=== PATIENT | male | born 1960 | race Two or more races ===

== ENCOUNTER 2024-08-15 11:05 | Emergency (ER) | payer MEDICARE, MEDICAID, SELFPAY ==
[2024-08-15 11:10] VITALS: PULSE 64; O2SAT 97; BMI 24.2
[2024-08-15 11:13] VITALS: BP 124/59; PULSE 69; RESP 19; TEMP 36.8; O2SAT 99
--- NOTE | 2024-08-15 11:36 | XR_ITS ---
Examination: CT lumbar spine, without contrast. 2-D sagittal reconstructions. 2-D coronal reconstructions. 3-D reconstructions. Date and time of exam:August 15, 2024 1413 hrs. Indications: Back pain beginning 3 days ago, no injury CTDI: vol (mGy):13.4 DLP: (mGycm):405 Technique: Multiple 1.25 mm axial sections of the lumbar spine without intravenous contrast have been obtained. 2-D sagittal and coronal reconstructions have been obtained. 3-D reconstructions have been obtained. Low dose protocols were performed. One or more of the following dose reduction techniques were used; automated exposure control, adjustment of the mA and/or KV according to patient size, use of iterative reconstruction technique. Findings: Moderate osteopenia Adequate alignment lumbar vertebral bodies on the lateral view No lumbar fractures or significant disc narrowing Lumbar pedicles, laminae, transverse and posterior spinous processes are intact L4-L5 moderate overall spinal stenosis, axial image 78, 5 mm central lumbar disc bulge, facet arthropathy and thickening of ligamentum flavum with mild left L4 ganglionic compression Impression: No lumbar fracture L4-L5 moderate overall spinal stenosis, including 5 mm central lumbar disc bulge and mild left L4 ganglionic compression Consider elective MRI lumbar spine without contrast follow-up
--- NOTE | 2024-08-15 11:37 | PD.EDRME ---
Rapid Medical Screening Exam RME Arrival date/time: 08/15/24 11:05 Chief Complaint: Extremity Problem,Nontraumatic Time Seen by Provider: 08/15/24 11:06 Vital signs: Vital Signs Temperature 98.3 F 08/15/24 11:13 Pulse Rate 69 08/15/24 11:13 Respiratory Rate 19 08/15/24 11:13 Blood Pressure 124/59 L 08/15/24 11:13 Pulse Oximetry (%) 99 08/15/24 11:13 Oxygen Delivery Method Room Air 08/15/24 11:13 RME Narrative: Left lower back pain radiating to LLE x 3 days. No preceding injury or fall reported. Taking gabapentin without relief.
--- NOTE | 2024-08-15 11:50 | PD.EDEXREM ---
ED Extremity Problem RME/HPI General Chief complaint: Extremity Problem,Nontraumatic Stated complaint: LEFT LEG PAIN x 3 DAYS Time Seen by Provider: 08/15/24 11:06 Arrival date/time: 08/15/24 11:05 RME / HPI RME / HPI Narrative: 64-year-old male patient with significant history of diabetes mellitus, came in for evaluation regarding left-sided lumbar pain, has been ongoing for the last 3 days, pain radiates to the left lower leg, described as dull ache, severity 9 out of 10, worse with extension of the leg. Patient denies any urinary incontinence. Denies any bladder incontinence. Denies any saddle anesthesia. Denies any fall. Denies any fever. Denies any other complaints. No medication was taken prior to arrival. Related Data Home Medications ?Medication ?Instructions ?Recorded ?Confirmed metformin 1,000 mg tablet 1,000 mg PO BID 08/09/22 08/09/22 Previous Rx's ?Medication ?Instructions ?Recorded cyclobenzaprine 10 mg tablet 10 mg PO TID PRN muscle spasm #30 08/15/24 tabs ibuprofen 800 mg tablet 800 mg PO TID PRN pain #30 tabs 08/15/24 Allergies Allergy/AdvReac Type Severity Reaction Status Date / Time No Known Allergies Allergy Verified 08/15/24 11:15 Review of Systems Review of Systems Narrative Review of Systems: Review of system reviewed and within normal limits except mentioned in HPI ED Exam Narrative Physical exam: VITAL SIGNS: Reviewed. GENERAL APPEARANCE: Alert and interactive, follows commands, no acute distress, HEAD AND FACE: Non-traumatic. ENT: PERRL, pink conjunctivitis, eyelid no trauma, Mucous membrane moist. NECK: Supple, nontender, no nuchal rigidity. CHEST: No tenderness, no crepitus, no paradoxical movement, no retractions. LUNGS: Clear, well ventilated, symmetric, no rales, no wheezing, no ronchi, no stridor, good breath sounds bilaterally. HEART: Regular rate, regular rhythm, no murmur, no gallops. ABDOMEN: Soft, positive bowel sounds, nondistended, no guarding, nontender, no rebound, no masses, RECTAL: Deferred. GENITAL: Deferred. NEUROLOGICAL: Gross motor function intact sensory function intact, Appropriate for age. MUSCULOSKELETAL: low back nontender, full range of motion. EXTREMITIES: Left posterior leg tenderness, positive straight leg raising test at 45 degrees., full range of motion. SKIN: Color pink, dry, no rash, no lacerations, no abrasions, no contusions. LYMPHATICS: Deferred. Course Quality Measures none Orders Category Date Time Status CT lumbar spine wo con Stat Exams 08/15/24 11:36 Completed Acetaminophen Tab [Tylenol ES Tab] Med 08/15/24 11:36 Discontinued 1,000 mg PO X1 ONE CYCLObenzaPRINE [Flexeril] Med 08/15/24 11:36 Discontinued 10 mg PO X1 ONE Dexamethasone Inj [Decadron Inj] Med 08/15/24 12:10 Discontinued 10 mg IM X1 ONE Ketorolac Inj [Toradol Inj] Med 08/15/24 11:36 Discontinued 30 mg IM X1 ONE Lidocaine 5% Patch Med 08/15/24 11:36 Discontinued 1 patch TOP X1 ONE Vital Signs Vital signs: Vital Signs Temperature 98.3 F 08/15/24 11:13 Pulse Rate 69 08/15/24 11:13 Respiratory Rate 19 08/15/24 11:13 Blood Pressure 124/59 L 08/15/24 11:13 Pulse Oximetry (%) 99 08/15/24 11:13 Oxygen Delivery Method Room Air 08/15/24 11:13 Extremity Problem MDM Narrative MDM Narrative:: 64-year-old male patient with significant history of diabetes mellitus, came in for evaluation regarding left-sided lumbar pain, has been ongoing for the last 3 days, pain radiates to the left lower leg, described as dull ache, severity 9 out of 10, worse with extension of the leg. Patient denies any urinary incontinence. Denies any bladder incontinence. Denies any saddle anesthesia. Denies any fall. Denies any fever. Denies any other complaints. No medication was taken prior to arrival. Patient received Tylenol, Flexeril, Decadron, Toradol, lidocaine patch, with significant improvement of symptoms. Patient's CT scan of the lumbar spine showed No lumbar fracture L4-L5 moderate overall spinal stenosis, including 5 mm central lumbar disc bulge and mild left L4 ganglionic compression Consider elective MRI lumbar spine without contrast follow-up Patient was advised to follow-up with PCP and for referral to spine surgeon for further management of his sciatica. Patient and family agrees with the plan. Patient is ambulatory prior to discharge Patient data External records reviewed:: None Clinical information provided by:: none Social determinants that could affect healthcare access:: none Patient has the following chronic illnesses:: None How is presenting disease/condition affected by chronic disease/condition?: no chronic disease Evaluation data The following diagnostics were reviewed and interpreted by me:: radiology exam(s) Lab and/or radiology exams considered but not ordered:: None Interpretation Summary: CT scan of the lumbar spine showed No lumbar fracture L4-L5 moderate overall spinal stenosis, including 5 mm central lumbar disc bulge and mild left L4 ganglionic compression Consider elective MRI lumbar spine without contrast follow-up Medications / Prescriptions Medications or Prescriptions considered but not ordered:: None Medication administrations:: Medication Administration History Discontinued Medications Acetaminophen (Acetaminophen 500 Mg Tablet) 1,000 mg PO X1 ONE Stop: 08/15/24 11:37 Last Admin: 08/15/24 11:59 Dose: 1,000 mg Documented By: TC Cyclobenzaprine HCl (Cyclobenzaprine 5 Mg Tablet) 10 mg PO X1 ONE Stop: 08/15/24 11:37 Last Admin: 08/15/24 12:00 Dose: 10 mg Documented By: TC Dexamethasone Sodium Phosphate (Dexamethasone Sod Phos Inj 10 Mg/Ml Vial) 10 mg IM X1 ONE Stop: 08/15/24 12:11 Last Admin: 08/15/24 12:28 Dose: 10 mg Documented By: TC Ketorolac Tromethamine (Ketorolac Inj 60 Mg/2 Ml Vial) 30 mg IM X1 ONE Stop: 08/15/24 11:37 Last Admin: 08/15/24 12:00 Dose: 30 mg Documented By: GILMAR Lidocaine (Lidocaine 5% 1 Patch) 1 patch TOP X1 ONE Stop: 08/15/24 11:37 Last Admin: 08/15/24 12:00 Dose: 1 patch Documented By: TC Toradol Decadron Flexeril Tylenol and lidocaine patch Consultations Consultation(s) initiated? (list below): No Diagnosis Extremity Problem Differential Diagnosis: other (Low back pain, sciatica, herniated disks) Most likely diagnosis given after review of the tests above:: Low back pain, sciatica Admission Indicated Admission indicated?: not indicated Explain why admission is indicated or not indicated:: None Admission Request Was there a request for admission?: No Disposition Plan Disposition Plan: Discharge Discharge Attestation Discharge Attestation: The patient and all family members were given an opportunity to ask questions and understood the discharge instructions. Discharge instructions specifically effects, indications for sooner follow up or return to the emergency department, and the expected course of current diagnosis. Patient condition: Stable Discharge Plan Plan Patient Disposition: HOME (Self Care) Disposition Comment: stable Prescriptions/Referrals Prescriptions/Med Rec: New ibuprofen 800 mg tablet 800 mg PO TID PRN (Reason: pain) Qty: 30 0RF cyclobenzaprine 10 mg tablet 10 mg PO TID PRN (Reason: muscle spasm) Qty: 30 0RF No Action metformin 1,000 mg tablet 1,000 mg PO BID Patient Comments: TOME FRANCK TABLETA TODOS LOS D WITH A MEAL FOR 30 DAYS Referrals: Calvin Jean MD [Primary Care Provider] - In 1 week Problem List Clinical Impression: Sciatica Patient/Caregiver Discharge Instructions Discharge Activity: activity as tolerated Education Materials: ED Sciatica Additional Instructions: Thank you for the opportunity for serving you today. You are stable for discharged . You are advised to: Follow-up with your PCP in 1 to 2 days for referral to spine surgeon Return to ED for worsening of symptoms Increase oral fluids Take medication as prescribed Print Language: Portuguese Stand Alone Forms: Nia Award Info., Patient Portal Info Letter LIZ/HUSEYIN Supervising Physician LIZ/HUSEYIN Supervising Physician: md michelle
[2024-08-15] MEDS: ACETAMINOPHEN 500 MG TABLET 1000 MG PO (11:59)
[2024-08-15] MEDS: LIDOCAINE 5% 1 PATCH TOP (12:00)
[2024-08-15] MEDS: KETOROLAC INJ 60 MG/2 ML VIAL 30 MG IM (12:00)
[2024-08-15] MEDS: CYCLObenzaPRINE 5 MG TABLET 10 MG PO (12:00)
[2024-08-15] MEDS: DEXAMETHASONE SOD PHOS INJ 10 MG/ML VIAL IM (12:28)
== END 2024-08-15 16:43 | disposition home or self-care (01) ==
PROVIDERS: Emergency Provider Emergency Medicine; PCP Family Medicine
DX: M51.16 Intervertebral disc disorders with radiculopathy, lumbar region (principal); M48.061 Spinal stenosis, lumbar region without neurogenic claudication; G95.29 Other cord compression
CPT/HCPCS: 72131; 96372; 99284; J1100; J1885; A9270

== ENCOUNTER 2024-08-22 10:07 | Emergency (ER) | payer MEDICARE, MEDICAID, SELFPAY ==
[2024-08-22 10:08] VITALS: BMI 21.6
[2024-08-22 11:00] VITALS: BP 121/63; PULSE 90; RESP 13; TEMP 37.1; O2SAT 97
[2024-08-22] MEDS: DIAZEPAM 5 MG TABLET 10 MG PO (11:20)
[2024-08-22] MEDS: DEXAMETHASONE SOD PHOS INJ 10 MG/ML VIAL PO (11:21)
[2024-08-22] MEDS: KETOROLAC INJ 30 MG/ML VIAL IM (11:21)
--- NOTE | 2024-08-22 11:50 | PD.EDBACK ---
ED Back Injury Pain RME/HPI General Chief Complaint: Back Pain/Injury Stated Complaint: LOWER BACK PAIN RADIANTING TO L LEG Time Seen by Provider: 08/22/24 10:15 Arrival date/time: 08/22/24 10:07 64-year-old male presents emergency department complaints of lower back pain patient recently seen for the same Limitations: no limitations Related Data Home Medications ?Medication ?Instructions ?Recorded ?Confirmed metformin 1,000 mg tablet 1,000 mg PO BID 08/09/22 08/09/22 Previous Rx's ?Medication ?Instructions ?Recorded cyclobenzaprine 10 mg tablet 10 mg PO TID PRN muscle spasm #30 08/15/24 tabs ibuprofen 800 mg tablet 800 mg PO TID PRN pain #30 tabs 08/15/24 hydrocodone 5 mg-acetaminophen 325 1 tab PO BID PRN pain #10 tabs 08/22/24 mg tablet Allergies Allergy/AdvReac Type Severity Reaction Status Date / Time No Known Allergies Allergy Verified 08/15/24 11:15 Review of Systems Review of Systems Systems Reviewed: All systems reviewed, normal except as documented Constitutional Constitutional: Reports system reviewed and no additional complaints, except as documented, Denies fever(s) and Denies headache(s) Eyes Eyes: Reports system reviewed and no additional complaints, except as documented and Denies blurry vision ENT Ears, Nose, Mouth, and Throat: Reports system reviewed and no additional complaints, except as documented, Denies headache(s), Denies nasal congestion and Denies nasal discharge Cardiovascular Cardiovascular: Reports system reviewed and no additional complaints, except as documented, Denies chest pain and Denies dyspnea Respiratory Respiratory: Reports system reviewed and no additional complaints, except as documented, Denies chest congestion, Denies cough and Denies dyspnea Gastrointestinal Gastrointestinal: Reports system reviewed and no additional complaints, except as documented and Denies abdominal pain Musculoskeletal Musculoskeletal: Reports system reviewed and no additional complaints, except as documented, Reports back pain, Denies deformity and Reports stiffness Integumentary/Breasts Skin/Breast: Reports system reviewed and no additional complaints, except as documented and Denies rash Neurologic Neurologic: Reports system reviewed and no additional complaints, except as documented, Reports as per HPI and Denies headache(s) Past Medical History Past Medical History NEUROLOGIC: Positive Neurological Disorders and Migraine; Negative Seizures or Head Trauma CARDIAC: Negative Cardiac Disorders or Congestive Heart Failure RESPIRATORY: Negative Chronic Obstructive Pulmonary Disease (COPD) or Tuberculosis GASTROINTESTINAL: Positive Gastrointestinal Disorders and Gall Bladder Disease (FOR THIS PROC); Negative Hepatitis GENITOURINARY: Negative Genitourinary Disorders or Renal Disease MUSCULOSKELETAL: Positive Musculoskeletal Disorders and Arthritis ENT: Negative Head Trauma ENDOCRINE: Positive Endocrine Disorders, Diabetes Mellitus Type 1 (TAKES PO MED) and Diabetes Mellitus Type 2 (TAKES PO MED) HEMATOLOGIC: Negative Blood Disorders OTHER HISTORY: Negative Hospitalization, Autoimmune Disease, Shingles, Falls, Blood Transfusions, Blood Transfusion Reaction, Anesthesia Reactions, Chicken Pox, Measles, Mumps or Cancer Family History FAMILY HISTORY: Positive Family Cancer (MOTHER (UTERUS)); Negative Family Psychiatric Problems, Family Respiratory Disorders, Family Cardiac Disorders (UNKNOWN), Family Gastrointestinal Problems, Family Surgery or Family Anesthesia Reaction Social History SMOKING STATUS: Never smoker ED Exam General Limitations: Present no limitations General appearance: Present alert and in no apparent distress Head Head exam: Present atraumatic Eye Eye exam: Present normal appearance, PERRL and EOMI ENT ENT exam: Present normal exam, normal oropharynx and mucous membranes moist Neck Neck exam: Present normal inspection, full ROM and trachea midline Chest Chest inspection: Present normal inspection and symmetric chest wall rise Respiratory Respiratory exam: Present normal lung sounds bilaterally Cardiovascular Cardiovascular exam: Present regular rate, normal rhythm and normal heart sounds Abdominal Exam Abdominal exam: Present soft and normal bowel sounds Extremities Exam Extremities exam: Present normal inspection and full ROM Back Exam Back exam: Present normal inspection, full ROM, tenderness, muscle spasm, paraspinal tenderness, sciatic notch tenderness (R) and straight leg raise (R); Absent CVA tenderness (R), CVA tenderness (L) or vertebral tenderness Neurological Exam Neurological exam: Present alert, oriented X3, CN II-XII intact, normal gait and reflexes normal; Absent motor sensory deficit Psychiatric Psychiatric exam: Present normal affect and normal mood Skin Skin exam: Present warm, dry, intact and normal color Course Quality Measures none Orders Category Date Time Status Dexamethasone Inj [Decadron Inj] Med 08/22/24 11:04 Discontinued 10 mg PO X1 ONE Diazepam [Valium] Med 08/22/24 11:04 Discontinued 10 mg PO X1 ONE Ketorolac Inj [Toradol Inj] Med 08/22/24 11:04 Discontinued 30 mg IM X1 ONE Vital Signs Vital signs: Vital Signs Temperature 98.8 F 08/22/24 11:00 Pulse Rate 90 08/22/24 11:00 Respiratory Rate 13 08/22/24 11:00 Blood Pressure 121/63 08/22/24 11:00 Pulse Oximetry (%) 97 08/22/24 11:00 Oxygen Delivery Method Room Air 08/22/24 11:00 O2 saturation 97% room air within normal limits Back Pain / Injury MDM Narrative MDM Narrative:: 64-year-old male presents emergency department complaints of lower back pain patient recently seen for the same On exam patient well-appearing patient does not appear ill or toxic patient reports no hematuria or dysuria patient reports no nausea or vomiting patient reports no saddle anesthesia or loss of bowel or bladder Patient reports that the pain is in the right side of his back and radiates down the right leg Patient had CT scan done 08/15 patient has bulging disks Patient given pain medication and muscle relaxants. At time reevaluation patient reports symptoms have improved Patient instructed to have outpatient MRI Patient discharged home in no distress to follow-up with primary care doctor in the next 24 to 48 hours and for any worsening symptoms to return to the ER immediately Patient data External records reviewed:: [facility] previous records Clinical information provided by:: patient Social determinants that could affect healthcare access:: none Patient has the following chronic illnesses:: None How is presenting disease/condition affected by chronic disease/condition?: no chronic disease Evaluation data The following diagnostics were reviewed and interpreted by me:: other (specify) (N/A) Lab and/or radiology exams considered but not ordered:: Consider not ordered Interpretation Summary: N/A Medications / Prescriptions Medications or Prescriptions considered but not ordered:: Given Medication administrations:: Medication Administration History Discontinued Medications Dexamethasone Sodium Phosphate (Dexamethasone Sod Phos Inj 10 Mg/Ml Vial) 10 mg PO X1 ONE Stop: 08/22/24 11:05 Last Admin: 08/22/24 11:21 Dose: 10 mg Documented By: OA Diazepam (Diazepam 5 Mg Tablet) 10 mg PO X1 ONE Stop: 08/22/24 11:05 Last Admin: 08/22/24 11:20 Dose: 10 mg Documented By: OA Ketorolac Tromethamine (Ketorolac Inj 30 Mg/Ml Vial) 30 mg IM X1 ONE Stop: 08/22/24 11:05 Last Admin: 08/22/24 11:21 Dose: 30 mg Documented By: OA Given Consultations Consultation(s) initiated? (list below): No Diagnosis Differential diagnosis back pain/injury: lumbar radiculopathy, strain of lumbar region and discitis Most likely diagnosis given after review of the tests above:: Back pain Admission Indicated Admission indicated?: not indicated Admission Request Was there a request for admission?: No Disposition Plan Disposition Plan: Discharge Discharge Attestation Discharge Attestation: The patient and all family members were given an opportunity to ask questions and understood the discharge instructions. Discharge instructions specifically effects, indications for sooner follow up or return to the emergency department, and the expected course of current diagnosis. Patient condition: Stable Discharge Plan Plan Patient Disposition: HOME (Self Care) Disposition Comment: Stable Prescriptions/Referrals Prescriptions/Med Rec: New hydrocodone-acetaminophen 5-325 mg tablet 1 tab PO BID MDD 10 PRN (Reason: pain) Qty: 10 0RF No Action metformin 1,000 mg tablet 1,000 mg PO BID Patient Comments: SANDRANena FRANCK JOHNSONA TODOS LOS D WITH A MEAL FOR 30 DAYS ibuprofen 800 mg tablet 800 mg PO TID PRN (Reason: pain) Qty: 30 0RF cyclobenzaprine 10 mg tablet 10 mg PO TID PRN (Reason: muscle spasm) Qty: 30 0RF Problem List Clinical Impression: Bulging lumbar disc Patient/Caregiver Discharge Instructions Education Materials: Relieving Back Pain Additional Instructions: Please follow up with your primary care doctor in the next 24-48hrs for any worsening symptoms return here immediately Please bring copy of your CT report your primary care doctor request outpatient MRI Print Language: Armenian Stand Alone Forms: Nia Award Info., Patient Portal Info Letter PA/HUSEYIN Supervising Physician LIZ/HUSEYIN Supervising Physician: Dr. Grewal
== END 2024-08-22 12:36 | disposition home or self-care (01) ==
LOC: SERX 11:52
PROVIDERS: Emergency Provider Emergency Medicine; PCP Family Medicine
DX: M51.360 Other intervertebral disc degeneration, lumbar region with discogenic back pain only (principal)
CPT/HCPCS: 96372; 99283; J1100; J1885; A9270

== ENCOUNTER → 2024-10-09 | Outpatient (CLI) | payer MEDICARE, MEDICAID, SELFPAY ==
--- NOTE | 2024-10-09 11:00 | XR_ITS ---
Examination: Arterial duplex lower extremity study. Date and time of exam: October 09, 2024 1121 hours INDICATIONS: Bilateral lower leg pain beginning 3 months ago Findings: Duplex sonographic imaging of the lower extremity arteries using B-mode/Moore scale imaging and Doppler spectral analysis and color flow. Ankle brachial indices have been recorded. Right common femoral artery demonstrates triphasic flow. Right superficial femoral artery demonstrates triphasic flow. Right popliteal artery demonstrates triphasic flow. Right posterior tibial artery demonstrated biphasic flow. Right ankle/brachial index is 1.4. Left common femoral artery demonstrates triphasic flow. Left superficial femoral artery demonstrates triphasic flow. Left popliteal artery demonstrates triphasic flow. Left posterior tibial artery demonstrated biphasic flow. Left ankle/brachial index is 1.3. Impression: No significant obstructive arterial disease
== END | disposition home or self-care (01) ==
LOC: CDIM 11:08
PROVIDERS: PCP Physician Assistant; Referring Provider Physician Assistant; Visit Provider Physician Assistant
DX: I73.9 Peripheral vascular disease, unspecified (principal)
CPT/HCPCS: 93925

== ENCOUNTER 2025-03-09 21:06 | Emergency (ER) | payer MEDICARE, MEDICAID, SELFPAY ==
[2025-03-09 21:10] VITALS: BMI 27.4
[2025-03-09 21:22] VITALS: BP 102/65; PULSE 108; RESP 18; TEMP 38; O2SAT 98
--- NOTE | 2025-03-09 21:44 | PD.EDURI ---
Upper Respiratory Inf. RME/HPI General Chief Complaint: Fever Stated Complaint: FEVER CHILLS WEAKNESS Time Seen by Provider: 03/09/25 21:20 Arrival date/time: 03/09/25 21:06 64M with history of DM presents to ED with 2 days of body aches, fevers/chills, and LLANES. Patient denies cough, dysuria, ab pain, N/V, diarrhea, sick contacts, and recent travel. Limitations: no limitations Related Data Home Medications ?Medication ?Instructions ?Recorded ?Confirmed metformin 1,000 mg tablet 1,000 mg PO BID 08/09/22 08/09/22 Previous Rx's ?Medication ?Instructions ?Recorded cyclobenzaprine 10 mg tablet 10 mg PO TID PRN muscle spasm #30 08/15/24 tabs ibuprofen 800 mg tablet 800 mg PO TID PRN pain #30 tabs 08/15/24 hydrocodone 5 mg-acetaminophen 325 1 tab PO BID PRN pain #10 tabs 08/22/24 mg tablet Allergies Allergy/AdvReac Type Severity Reaction Status Date / Time No Known Allergies Allergy Verified 03/09/25 21:14 Review of Systems Review of Systems Systems Reviewed: All systems reviewed, normal except as documented Constitutional Constitutional: Reports system reviewed and no additional complaints, except as documented, Reports as per HPI, Reports body ache(s), Reports chills, Reports fever(s) and Reports headache(s) ENT Ears, Nose, Mouth, and Throat: Denies disequilibrium and Reports headache(s) Cardiovascular Cardiovascular: Reports system reviewed and no additional complaints, except as documented, Denies chest pain and Denies dyspnea Respiratory Respiratory: Reports system reviewed and no additional complaints, except as documented, Denies cough and Denies dyspnea Gastrointestinal Gastrointestinal: Reports system reviewed and no additional complaints, except as documented, Denies abdominal pain, Denies nausea and Denies vomiting Neurologic Neurologic: Reports system reviewed and no additional complaints, except as documented, Denies confusion, Denies disequilibrium and Reports headache(s) Psychiatric Psychiatric: Denies confusion Past Medical History Past Medical History NEUROLOGIC: Positive Neurological Disorders and Migraine; Negative Seizures or Head Trauma CARDIAC: Negative Cardiac Disorders or Congestive Heart Failure RESPIRATORY: Negative Chronic Obstructive Pulmonary Disease (COPD) or Tuberculosis GASTROINTESTINAL: Positive Gastrointestinal Disorders and Gall Bladder Disease (FOR THIS PROC); Negative Hepatitis GENITOURINARY: Negative Genitourinary Disorders or Renal Disease MUSCULOSKELETAL: Positive Musculoskeletal Disorders and Arthritis ENT: Negative Head Trauma ENDOCRINE: Positive Endocrine Disorders, Diabetes Mellitus Type 1 (TAKES PO MED) and Diabetes Mellitus Type 2 (TAKES PO MED) HEMATOLOGIC: Negative Blood Disorders OTHER HISTORY: Negative Hospitalization, Autoimmune Disease, Shingles, Falls, Blood Transfusions, Blood Transfusion Reaction, Anesthesia Reactions, Chicken Pox, Measles, Mumps or Cancer Family History FAMILY HISTORY: Positive Family Cancer (MOTHER (UTERUS)); Negative Family Psychiatric Problems, Family Respiratory Disorders, Family Cardiac Disorders (UNKNOWN), Family Gastrointestinal Problems, Family Surgery or Family Anesthesia Reaction Social History SMOKING STATUS: Current some day smoker ED Exam General Limitations: Present no limitations General appearance: Present alert and in no apparent distress Expanded Head Exam Head exam physical: Present other (dried blood on R jaw area) Eye Eye exam: Present normal appearance, PERRL and EOMI ENT ENT exam: Present normal exam, normal oropharynx and mucous membranes moist Neck Neck exam: Present normal inspection, full ROM and trachea midline Chest Chest inspection: Present normal inspection and symmetric chest wall rise Respiratory Respiratory exam: Present normal lung sounds bilaterally Cardiovascular Cardiovascular exam: Present regular rate, normal rhythm and normal heart sounds Abdominal Exam Abdominal exam: Present soft and normal bowel sounds Extremities Exam Extremities exam: Present normal inspection and full ROM Back Exam Back exam: Present normal inspection and full ROM Neurological Exam Neurological exam: Present alert, oriented X3 and CN II-XII intact Psychiatric Psychiatric exam: Present normal affect and normal mood Skin Skin exam: Present warm, dry, intact and normal color Course Quality Measures none Orders Category Date Time Status Bedside COVID-19 Antigen Test NOW Care 03/09/25 21:28 Active Bedside Influenza A&B Antigen Test NOW Care 03/09/25 21:28 Completed XR chest 2V Stat Exams 03/09/25 21:43 Ordered CBC Stat Lab 03/09/25 21:43 Ordered CMP [Comprehensive Metabolic Panel] Stat Lab 03/09/25 21:43 Ordered Lactate (Lactic Acid) Stat Lab 03/09/25 21:43 Ordered Procalcitonin Stat Lab 03/09/25 21:43 Ordered Urinalysis, C/S if Indicated Stat Lab 03/09/25 21:43 Ordered Acetaminophen Tab [Tylenol ES Tab] Med 03/09/25 21:28 Discontinued 500 mg PO X1 ONE Vital Signs Vital signs: Vital Signs Temperature 100.4 F 03/09/25 21:22 Pulse Rate 108 H 03/09/25 21:22 Respiratory Rate 18 03/09/25 21:22 Blood Pressure 102/65 03/09/25 21:22 Pulse Oximetry (%) 98 03/09/25 21:22 Oxygen Delivery Method Room Air 03/09/25 21:22 O2 at 98% on RA and WNLs Upper Respiratory Infection MDM Narrative MDM Narrative:: 64M with history of DM presents to ED with 2 days of body aches, fevers/chills, and LLANES. Patient denies cough, dysuria, ab pain, N/V, diarrhea, sick contacts, and recent travel. Physical exam reveals clear oropharynx and lungs. Normal WOB. Patient has some dried blood on R jaw area from shaving, patient states. Patient is mildly febrile but does not appear toxic. Speech normal. Gait normal. Swabs neg. Patient eloped. Patient data External records reviewed:: [facility] [place] previous records Clinical information provided by:: patient Social determinants that could affect healthcare access:: none Patient has the following chronic illnesses:: DM How is presenting disease/condition affected by chronic disease/condition?: exacerbated by Evaluation data The following diagnostics were reviewed and interpreted by me:: lab results Lab and/or radiology exams considered but not ordered:: ordered Interpretation Summary: above Medications / Prescriptions Medications or Prescriptions considered but not ordered:: ordered Medication administrations:: Medication Administration History Discontinued Medications Acetaminophen (Acetaminophen 500 Mg Tablet) 500 mg PO X1 ONE Stop: 03/09/25 21:29 above Consultations Consultation(s) initiated? (list below): No Diagnosis Upper Respiratory Differential Diagnosis: upper respiratory infection, croup, otitis media, sinusitis, viral infection, bronchitis, influenza, pharyngitis and other (CAP) Most likely diagnosis given after review of the tests above:: URI Admission Indicated Admission indicated?: not indicated Admission Request Was there a request for admission?: No Disposition Plan Disposition Plan: other (specify) (eloped) Discharge Plan Plan Patient Disposition: Elopement Prescriptions/Referrals Prescriptions/Med Rec: No Action metformin 1,000 mg tablet 1,000 mg PO BID Patient Comments: LALITO BRYANT TOS[facility] LOS D WITH A MEAL FOR 30 DAYS ibuprofen 800 mg tablet 800 mg PO TID PRN (Reason: pain) Qty: 30 0RF cyclobenzaprine 10 mg tablet 10 mg PO TID PRN (Reason: muscle spasm) Qty: 30 0RF hydrocodone-acetaminophen 5-325 mg tablet 1 tab PO BID MDD 10 PRN (Reason: pain) Qty: 10 0RF Problem List Clinical Impression: URI (upper respiratory infection) Patient/Caregiver Discharge Instructions Print Language: Nepalese PA/WIRE DROPPER Supervising Physician PA/WIRE DROPPER Supervising Physician: Dr. Reinoso
--- NOTE | 2025-03-09 22:27 | PC.NURSE ---
called for pt from lobby/outside, no answerx1@[id number]
--- NOTE | 2025-03-09 22:27 | PC.NURSE ---
called for pt from lobby/outside, no answerx2@ [id number]
--- NOTE | 2025-03-09 22:33 | PC.NURSE ---
called for pt from lobby/outside, no answerx3@ [phone]
== END 2025-03-09 22:34 | disposition left against medical advice (07) ==
LOC: SERX 23:09
PROVIDERS: Emergency Provider Emergency Medicine
DX: J06.9 Acute upper respiratory infection, unspecified (principal); F17.210 Nicotine dependence, cigarettes, uncomplicated; Z53.29 Procedure and treatment not carried out because of patient's decision for other reasons
CPT/HCPCS: 80053; 81001; 83605; 84145; 85025; 87400; 87811; 99282; 99283

== ENCOUNTER 2025-06-05 23:55 | Inpatient (IN) | payer MEDICARE, MEDICAID, SELFPAY ==
[2025-06-06] VITALS (32 sets, daily range): BP systolic 80–134; BP diastolic 48–82; PULSE 45–78; RESP 12–19; TEMP 35.8–36.8; O2SAT 98–100; BMI 16.3; BMI 17.4
--- NOTE | 2025-06-06 00:04 | EKG_ITS ---
[facility] Test Date: 2025-06-06 Pat Name: BRITT DOBBINS Department: Room: - Gender: Male Medicare Nurse: : 1960 Requested By: Vic Mckeon Order Number: [id number] Reading MD: Vic Mckeon Measurements Intervals [place] Rate: 65 P: 66 NM: 138 QRS: 73 QRSD: 84 T: 78 QT: 411 QTc: 428 Interpretive Statements SINUS RHYTHM Compared to ECG 08/09/2022 09:06:57 Sinus bradycardia no longer present Sinus arrhythmia no longer present /store/S0/[id number].pdf
[2025-06-06] MEDS: SODIUM CHLORIDE 0.9% 1000 ML 1,000 ML 999 ML IV ×2 (00:15→03:46)
--- NOTE | 2025-06-06 00:17 | PD.EDADULT ---
ED General RME/HPI General Chief complaint: Nausea/Vomiting/Diarrhea Stated complaint: ABDOMINAL PAIN Time Seen by Provider: 06/06/25 00:01 Arrival date/time: 06/05/25 23:55 RME / HPI RME / HPI narrative: Shamar is a 65 y/o male who comes in for evaluation for multiple episodes of hematemesis. Patient reports that he was drinking coffee this morning and he had it with grapes and he felt nauseous and threw up. He says that the color of the vomiting was dark. Denies this ever happening to him. He says he drinks 2-4 beers every day and is not sure for how long. Denies any dark bowel movements. He says that he only takes Tylenol and avoids NSAIDs such as ibuprofen and Advil. He does not have any abdominal pain at this time. His states that he is unsure when the last time he has not had a colonoscopy. His also states that he sometimes spikes his coffee with whiskey. She also says that he has been losing weight for several years now. She also states that he sometimes hide his alcohol from her. Related Data Home Medications ?Medication ?Instructions ?Recorded ?Confirmed metformin 1,000 mg tablet 1,000 mg PO BID 08/09/22 08/09/22 Previous Rx's ?Medication ?Instructions ?Recorded cyclobenzaprine 10 mg tablet 10 mg PO TID PRN muscle spasm #30 08/15/24 tabs ibuprofen 800 mg tablet 800 mg PO TID PRN pain #30 tabs 08/15/24 hydrocodone 5 mg-acetaminophen 325 1 tab PO BID PRN pain #10 tabs 08/22/24 mg tablet Allergies Allergy/AdvReac Type Severity Reaction Status Date / Time No Known Allergies Allergy Verified 03/09/25 21:14 Review of Systems Review of Systems Narrative Review of Systems: 12 point ROS reviewed and is otherwise negative unless stated directly in the HPI ED Exam Narrative Physical exam: General: AAOx3, NAD, anorexic male, appears slightly cachectic, Romansh-speaking male HEENT: Dry mucous membranes, conjunctiva clear, EOMI, PERRLA, minimal musculature around clavicles Cardiovascular: S1, S2, radial pulses +2 bilat, RRR Pulmonary: CTAB bilat no cough, no wheezing GI: No tenderness to light or deep palpitation, no guarding, rigidity, rebound tenderness or distension, AUNDREA performed and FOBT + Extremities: No presence of trace or pitting edema in lower extremities bilaterally, dorsalis pedis pulses +2 bilaterally Neuro: AAOx3, no focal motor or sensory deficits in the UE or LE bilat Psych: Cooperative Course Quality Measures none Orders Category Date Time Status Admit to Inpatient Status Routine Admission 06/06/25 03:20 Active Patient Condition Routine Admission 06/06/25 03:20 Ordered Activity as Tolerated Routine Care 06/06/25 03:22 Ordered COVID-19 Screening Questionnaire NOW Care 06/06/25 03:39 Active Decision to Admit X1 Care 06/06/25 03:39 Completed EKG (ED ONLY) *Do not use* NOW Care 06/06/25 00:04 Completed Insert IV NOW Care 06/06/25 00:04 Active NPO NOW Care 06/06/25 01:21 Active Notify provider NEEDED Care 06/06/25 03:20 Active Post Transfusion H&H PRN Care 06/06/25 01:15 Active Sequential Compression Device QSHIFT Care 06/06/25 03:20 Active Transfuse,blood/blood products NOW Care 06/06/25 01:15 Active Consult to Gastroenterology Stat Cons 06/06/25 01:21 Ordered Diet NPO (NOW) Diet 06/06/25 01:21 Active EKG (ED Only) Stat Exams 06/06/25 00:04 Draft US liver Stat Exams 06/06/25 01:22 Taken Alcohol, Blood Medical Stat Lab 06/06/25 00:05 Completed Alcohol, Urine Routine Lab 06/06/25 03:15 Ordered Basic Metabolic Panel AM DRAW Lab 06/06/25 04:40 Received Basic Metabolic Panel AM DRAW Lab 06/07/25 05:00 Ordered Basic Metabolic Panel AM DRAW Lab 06/08/25 05:00 Ordered CBC AM DRAW Lab 06/06/25 04:40 Completed CBC AM DRAW Lab 06/07/25 05:00 Ordered CBC AM DRAW Lab 06/08/25 05:00 Ordered CBC Stat Lab 06/06/25 00:05 Completed CMP [Comprehensive Metabolic Panel] Stat Lab 06/06/25 00:05 Completed Drug Screen,Urine Stat Lab 06/06/25 02:15 Ordered HIV RAPID [HIV (1&2) Antibody Rapid] Stat Lab 06/06/25 00:05 Completed Hepatitis C Antibody Stat Lab 06/06/25 04:40 Received INR [Prothrombin Time with INR] Stat Lab 06/06/25 00:05 Completed Lipase Stat Lab 06/06/25 00:05 Completed Lipid Panel Routine Lab 06/06/25 04:40 Received Mag [Magnesium] Stat Lab 06/06/25 00:05 Completed Magnesium AM DRAW Lab 06/06/25 04:40 Received Magnesium AM DRAW Lab 06/07/25 05:00 Ordered Magnesium AM DRAW Lab 06/08/25 05:00 Ordered Occult Blood, Stool (LAB) Stat Lab 06/06/25 00:19 Completed PTT [Partial Thromboplastin Time] Stat Lab 06/06/25 00:05 Completed Path Review Blood Smear Stat Lab 06/06/25 00:05 Completed Phosphorous AM DRAW Lab 06/07/25 05:00 Ordered Phosphorous AM DRAW Lab 06/08/25 05:00 Ordered Phosphorous AM DRAW Lab 06/09/25 05:00 Ordered Phosphorous Stat Lab 06/06/25 00:05 Completed Troponin I Stat Lab 06/06/25 00:05 Completed Type and Screen Stat Lab 06/06/25 00:05 Completed Urinalysis, C/S if Indicated Stat Lab 06/06/25 00:57 Completed Urine Culture Stat Lab 06/06/25 00:57 Received prbc [Red Blood Cells] Stat Lab 06/06/25 00:05 Completed Acetaminophen Tab [Tylenol Tab] Med 06/06/25 03:20 Active 650 mg PO Q6H PRN Acetaminophen Tab [Tylenol Tab] Med 06/06/25 03:20 Active 650 mg PO Q6H PRN Octreotide Acet Inj [SandoSTATIN Inj] Med 06/06/25 01:20 Discontinued 50 mcg IV X1 ONE Ondansetron Inj [Zofran Inj] Med 06/06/25 03:20 Active 4 mg IVP Q6H PRN Pantoprazole Inj [Protonix Inj] Med 06/06/25 09:00 Active 40 mg IVP BID Pantoprazole Inj [Protonix Inj] Med 06/06/25 01:17 Discontinued 80 mg IVP X1 ONE Sodium Chloride 0.9% 1000 ml [Ns] 1,000 ml Med 06/06/25 00:04 Discontinued IV 999 mls/hr Sodium Chloride 0.9% 1000 ml [Ns] 1,000 ml Med 06/06/25 03:39 Discontinued IV 999 mls/hr Sodium Chloride 0.9% [Ns] 100 ml Med 06/06/25 01:20 Active Octreotide Acet Inj [SandoSTATIN Inj] 1,000 mcg IV 50 mcg/hr Code Status Routine Oth 06/06/25 03:20 Ordered Vital Signs Vital signs: Vital Signs Temperature 97.9 F 06/06/25 00:01 Pulse Rate 70 06/06/25 00:01 Respiratory Rate 16 06/06/25 00:01 Blood Pressure 80/48 L 06/06/25 00:01 Pulse Oximetry (%) 100 06/06/25 00:01 Oxygen Delivery Method Room Air 06/06/25 00:01 Discharge Plan Problem List Clinical Impression: GI bleed MDM Narrative MDM hospital course (for use when minimal MDM required): 0021: Ordered labs including CBC, CMP, ordered 1 PRBC in addition to type and screen. AUNDREA performed and FOBT was positive. Ordered additional fluid bolus. Also ordered HIV and hep C due to patient being cachectic. 0120: Spoke with GI, Dr. Orellana, recommends initiating octreotide drip with octreotide loading dose in addition to Protonix. Will put patient n.p.o. and set for endoscopy for later today. Will transfuse blood now as well. 0200: Spoke with primary hospitalist team who will review case for admission. 0245: Hospitalist team agrees for admission. Medication Administration(s) Medication Administration History Acetaminophen (Acetaminophen 325 Mg Tablet) 650 mg PO Q6H PRN PRN Reason: Fever >101.5 Stop: 07/06/25 03:19 Acetaminophen (Acetaminophen 325 Mg Tablet) 650 mg PO Q6H PRN PRN Reason: PAIN SCALE 1-3 (mild Stop: 07/06/25 03:19 Octreotide Acetate 1,000 mcg/ (Sodium Chloride) 102 mls @ 5.1 mls/hr IV .Q20H MANUEL; Protocol Stop: 06/11/25 01:20 Last Admin: 06/06/25 02:27 Dose: 50 mcg/hr, 5.1 mls/hr Documented By: ANAI Ceftriaxone Sodium/Dextrose (Rocephin/D5w 1gm Iv Premix) 1 gm in 50 mls @ 100 mls/hr IV QDAY MANUEL Stop: 06/13/25 04:04 Ondansetron HCl (Ondansetron Inj 2 Mg/Ml Inj 2 Ml) 4 mg IVP Q6H PRN; Protocol PRN Reason: NAUSEA OR VOMITING Stop: 07/06/25 03:19 Pantoprazole Sodium (Pantoprazole Inj 40 Mg Vial) 40 mg IVP BID MANUEL Stop: 07/06/25 08:59 Sennosides (Senna/Docusate Sod 1 Tab Tablet) 1 tab PO QDAY PRN; Protocol PRN Reason: CONSTIPATION Stop: 07/06/25 03:54 Discontinued Medications Sodium Chloride (Ns) 1,000 mls @ 999 mls/hr IV .Q1H1M ONE Stop: 06/06/25 01:04 Last Infusion: 06/06/25 01:29 Dose: Infused Documented By: Admin: 06/06/25 00:15 Dose: 999 mls/hr Documented By: BARRON Sodium Chloride (Ns) 1,000 mls @ 999 mls/hr IV .Q1H1M ONE Stop: 06/06/25 04:39 Last Infusion: 06/06/25 04:51 Dose: Infused Documented By: Admin: 06/06/25 03:46 Dose: 999 mls/hr Documented By: ANAI Octreotide Acetate (Octreotide Acet Inj 50 Mcg/Ml Vial) 50 mcg IV X1 ONE Stop: 06/06/25 01:21 Last Admin: 06/06/25 02:28 Dose: 50 mcg Documented By: ANAI Pantoprazole Sodium (Pantoprazole Inj 40 Mg Vial) 80 mg IVP X1 ONE Stop: 06/06/25 01:18 Last Admin: 06/06/25 02:25 Dose: 80 mg Documented By: ANAI Consultations/Discussions re: Management Consult #1: Date/time: 06/06/25 1:29 am Physician, specialty, service, details: Spoke with GI, Dr. Orellana, recommends initiating octreotide drip with octreotide loading dose in addition to Protonix. Will put patient n.p.o. and set for endoscopy for later today. Consult #2: Date/time: 06/06/25 2:32 am Physician, specialty, service, details: 0200: Spoke with primary hospitalist team, Dr. Davis, who will review case for admission. 0245: Hospitalist team agrees for admission.
[2025-06-06 00:29] LABS: Basophils # (Auto) 0.0 Thou/mm3 (0.0-0.2); Basophils % (Auto) 1 % (0-2.5); Eosinophils # (Auto) 0.1 Thou/mm3 (0.0-0.5); Eosinophils % (Auto) 1 % (0-10); Immature Granulocytes Auto 0.02 Thou/mm3 (0.00-0.00); Lymphocytes # (Auto) 1.9 Thou/mm3 (1.0-4.8); Lymphocytes % (Auto) 24 % (10-50); Mean Corpuscular HGB Conc 34.3 g/dl (31.0-37.0); Mean Corpuscular Hemoglobin 32.9 pg (25.0-35.0); Mean Corpuscular Volume 96 fL (80-100); Monocytes # (Auto) 0.7 Thou/mm3 (0.0-0.8); Monocytes % (Auto) 8 % (0-12); Neutrophils # (Auto) 5.1 Thou/mm3 (1.8-7.7); Neutrophils % (Auto) 65 % (37-80); Nucleated Red Blood Cell # 0.00 Thou/mm3 (0.00-0.00); Nucleated Red Blood Cell % 0 /100 WBC (0); Platelet Count 327 Thou/mm3 (140-440); RDW Standard Deviation 50.7 fL (35.1-43.9); Red Blood Count 2.10 Miln/mm3 (4.50-5.90); White Blood Count 7.8 Thou/mm3 (3.8-10.6)
[2025-06-06 00:31] LABS: Hematocrit 20.1 % (41.0-53.0); Hemoglobin 6.9 g/dL (13.5-16.0)
[2025-06-06 00:38] LABS: Path Review Blood Smear Sent to Pathologist
[2025-06-06 00:43] LABS: OBS Card Lot # 0124; OBS Developer Expiration Date 06/01/2026; OBS Developer Lot # 75027G; OBS Performed By Orpiw2; OBS QC OK? Yes; Occult Blood, Stool Positive (Negative)
[2025-06-06 00:47] LABS: Alanine Aminotransferase 11 U/L (10-49); Albumin, Serum 3.4 gm/dL (3.4-4.8); Albumin/Globulin Ratio 1.3 (1.2-2.2); Alkaline Phosphatase 67 U/L (46-116); Anion Gap 9 (7-16); Aspartate Amino Transferase 35 U/L (0-34); BUN/Creatinine Ratio 73 Ratio (12-20); Bilirubin,Total 0.5 mg/dL (0.3-1.2); Blood Urea Nitrogen 44 mg/dL (9-23); Calcium 9.2 mg/dL (8.3-10.6); Calcium (Corrected) 9.7 mg/dL (8.5-10.1); Carbon Dioxide 27.1 mMol/L (20.0-31.0); Chloride 104 mMol/L (98-107); Creatinine (Component) 0.6 mg/dL (0.6-1.3); Estimated Creatinine Clearance 76.2 mL/min (>60); Globulin 2.6 gm/dL (2.3-3.5); Glucose 113 mg/dL (74-106); Lipase 30 U/L (12-53); Magnesium 2.1 mg/dL (1.6-2.6); Osmolality,Calculated 291 (275-295); Phosphorous 3.2 mg/dL (2.4-5.1); Potassium 3.7 mMol/L (3.4-5.1); Sodium 140 mMol/L (136-145); Total Protein 6.0 gm/dL (5.7-8.2); Troponin I < 0.020 ng/mL (0.0-0.045); eGFR > 60 See Note
[2025-06-06 01:04] LABS: Collection Type, Urine Catheter
[2025-06-06 01:09] LABS: Bacteria,Urine 4+; Bilirubin,Urine Negative (Negative); Blood,Urine Negative (Negative); Clarity,Urine Clear (Clear/Hazy); Color,Urine Lt-Yellow (Lt Yel-Yel); Glucose, Urine 3+ (Negative); Hyaline Casts,Urine < 1 /hpf (0-1); Ketones,Urine Negative (Negative); Leukocyte Esterase,Urine Positive (Negative); Nitrite,Urine Negative (Negative); PH,Urine 6.5 (5.0-7.0); Protein,Urine Negative (Neg - Trace); RBC,Urine < 1 /hpf (0-3); Specific Gravity,Urine 1.018 (1.001-1.035); Squamous Epithelial Cell,Urine < 1 /hpf (0-5); Urobilinogen,Urine Negative mg/dL (0.0-1.0); WBC,Urine 38 /hpf (0-5)
[2025-06-06 01:11] LABS: Culture Indicated,Urine Yes
[2025-06-06 01:15] LABS: HIV (1&2) Antibody Rapid Non-Reactive
--- NOTE | 2025-06-06 01:22 | XR_ITS ---
Examination: Abdomen sonogram, Limited Date and time of exam: June 06, 2025, 0132 hrs. Indications: Diagnosis cirrhosis Technique: Real-time collado scale transabdominal sonographic images of the upper abdomen obtained. Findings: Absent gallbladder Normal common bile duct 0.4 cm Pancreas obscured by bowel gas Liver 14.0 cm irregular contour fatty infiltration no focal liver lesions Normal hepatopedal portal venous flow Patent IVC Impression: Absent gallbladder Normal common bile duct Primary hepatocellular disease versus cirrhosis, no focal liver lesions
--- NOTE | 2025-06-06 02:02 | PC.NURSE ---
PT BIBA FOR VOMITING BLOOD. PT STATES THAT HE HAD ONE VOMITING EPISODE THAT WAS RED BUT HE THOUGHT IT WAS RELATED TO GRAPES THAT HE ATE EARLY. THIS RN ASKED IF HES NOTICED ANY RED STOOLS OR BLACK STOOLS. HE STATES THAT HES HAD ONE STOOL THAT WAS DARK. PT DENIES SOB OR CHEST PAIN. DOES REPORT SOME ABDOMINAL PAIN AND NAUSEA. HE STATES THAT HES BEEN FEELING WEAK FOR A LONG TIME.
--- NOTE | 2025-06-06 02:07 | PC.NURSE ---
blood transfusion initiated at bedside per provider order. Correct patient identification. Vital signs obtained prior to transfusion. Patient monitored closely during initiation of transfusion. No signs or symptoms of transfusion reaction noted. Patient denies chills, fever, rash, sob, back pain, or other discomfort. RN remained at bedside during first 15 minutes of transfusion. Vital signs within normal limits; patient resting comfortably.
[2025-06-06] MEDS: OCTREOTIDE ACET INJ 1,000 MCG in SODIUM CHLORIDE 0.9% 100 ML 5.1 MCG IV ×2 (02:27→21:04)
[2025-06-06] MEDS: OCTREOTIDE ACET INJ 50 mCg/ML VIAL IV (02:28)
--- NOTE | 2025-06-06 02:38 | PRELIM_ITS ---
Ultrasound liver with Doppler and wave Doppler spectral analysis. June 06, 2025 0132 hours Clinical history: Concern for cirrhosis Comparison: None available at the time of this report. Findings: The liver measures 14.0 cm and demonstrates normal echotexture. There is no intrahepatic biliary ductal dilatation. The main portal vein demonstrates hepatopetal flow. The visualized hepatic veins appear patent. The common hepatic duct is normal in caliber. The CBD measures 4.2 mm. The portal vein is patent with hepatopetal flow and normal wave Doppler spectral analysis. The hepatic veins are patent with normal wave Doppler spectral analysis. The IVC is patent with normal wave Doppler spectral analysis. Impression: Unremarkable sonography of the liver. No ultrasound evidence of cirrhosis. Report Electronically Signed By: Cricket Fowler 06/06/2025 2:37:23 AM [EST]
[2025-06-06 02:59] LABS: INR 1.0 (0.9-1.3); Partial Thromboplastin Time 27.0 Seconds (22.0-36.0); Prothrombin Time 10.7 Seconds (9.0-12.2)
[2025-06-06 03:29] LABS: Alcohol, Blood Medical < 3.0 mg/dL (0-10.0)
--- NOTE | 2025-06-06 03:30 | PD.RESHP ---
Documentation for date of: 06/06/25 HPI History of Present Illness History of present illness: Mr. Schwab is a 65 y/o male with PMH of EtOH use disorder, HLD, T2DM who presented to the ED on 06/05 with multiple episodes of hematemis over the past 24 hours. Patient minimally interactive during exam, history provided by patient's and daughter at bedside. Patient drinks 2-3 tall beers and smokes 1/2 PPD since childhood. Per ED note, he also occasionally adds whiskey to his coffee. Notes constipation for the past several days. He also takes Tylenol and ibuprofen daily. Patient denies abdominal pain, nausea, chest pain/pressure, urinary sx. Daughter notes that the patient has not had any recent illnesses or hospitalizations. He sees a PCP but does not see any specialists. ED course: Afebrile, HR 50s-70s, BP 100s / 50-60s. Labs significant for normocytic normochromic anemia hgb 6.9, HCT 20.1, BUN 44. Cr and eGFR WNL. Lipase WNL. AST 35. Troponin negative. UA 3+ glucose, +LE, WBC 38, 4+ bacteria. FOBT positive. HIV negative. EKG NSR HR 65, QTc 428. Liver US pending final read. Ucx pending. Given 1U pRBC, 2L NS, octreotide, pantropazole IV. Consulted GI. PMHx: EtOH use disorder, HLD, T2DM Allergies: NKDA Home meds: Metformin, unknown dose (pending med rec) SgHx: cholecystectomy (08/[address] Reynolds) SHx: Drinks 2-3 tall beers and smokes 1/2 PPD since childhood. Lives at home with . FHx: none reported Review of Systems Review of Systems Narrative Review of Systems: 14 point ROS negative other than HPI Exam Vital Signs Temp Pulse Resp BP Pulse Ox O2 Del Method 97.8 F 60 17 106/51 L 100 Room Air 06/06/25 02:31 06/06/25 02:31 06/06/25 02:31 06/06/25 02:31 06/06/25 02:31 06/06/25 02:31 Narrative Exam General: No acute distress, cachectic, minimally interactive Eye: PERRL, EOMI HENT: Normocephalic, atraumatic, normal hearing Neck: Supple, non-tender, no JVD, no lymphadenopathy Lungs: Clear to auscultation bilaterally, non-labored respirations, symmetric chest rise, no use of accessory muscles Heart: Normal S1 and S2, no S3 or S4 appreciated. Normal rate and regular rhythm, no murmurs, rubs gallops, or edema. Peripheral pulses intact bilaterally, capillary refill brisk distally Abdomen: Soft, non-tender, non-distended, normal bowel sounds. No guarding or rebound tenderness. Musculoskeletal: Normal range of motion and strength Skin: Skin is warm, dry, no rashes or lesions. Neurologic: Alert, awake and oriented to person, place, but not to date or situation. Unable to assess CN II-XII. Moving all extremities spontaneously Results: Labs 06/06/25 04:40 06/06/25 00:05 Labs: Short CBC 06/06/25 Range/Units 00:05 WBC 7.8 (3.8-10.6) Thou/mm3 Hgb 6.9 L* (13.5-16.0) g/dL Hct 20.1 L* (41.0-53.0) % Plt Count 327 (140-440) Thou/mm3 BMP 06/06/25 00:05 Sodium 140 Potassium 3.7 Chloride 104 Carbon Dioxide 27.1 BUN 44 H Creatinine 0.6 Glucose 113 H Calcium 9.2 Cardiac Enzymes 06/06/25 Range/Units 00:05 Troponin I < 0.020 (0.0-0.045) ng/mL Liver Function 06/06/25 Range/Units 00:05 Total Bilirubin 0.5 (0.3-1.2) mg/dL AST 35 H (0-34) U/L ALT 11 (10-49) U/L Alkaline Phosphatase 67 (46-116) U/L Albumin 3.4 (3.4-4.8) gm/dL Urine 06/06/25 Range/Units 00:57 Urine Color Lt-Yellow (Lt Yel-Yel) Urine Clarity Clear (Clear/Hazy) Urine pH 6.5 (5.0-7.0) Ur Specific [place] 1.018 (1.001-1.035) Urine Protein Negative (Neg - Trace) Urine Glucose (UA) 3+ A (Negative) Quality Measures Quality Measures none Advance care planning discussed with:: patient, significant other and child Medications Home Medications and Allergies Home Medications ?Medication ?Instructions ?Recorded ?Confirmed ?Type metformin 1,000 mg tablet 1,000 mg PO BID 08/09/22 08/09/22 History Allergies Allergy/AdvReac Type Severity Reaction Status Date / Time No Known Allergies Allergy Verified 03/09/25 21:14 Visit Medications Acetaminophen (Acetaminophen 325 Mg Tablet) 650 mg PO Q6H PRN PRN Reason: Fever >101.5 Stop: 07/06/25 03:19 Acetaminophen (Acetaminophen 325 Mg Tablet) 650 mg PO Q6H PRN PRN Reason: PAIN SCALE 1-3 (mild Stop: 07/06/25 03:19 Octreotide Acetate 1,000 mcg/ (Sodium Chloride) 102 mls @ 5.1 mls/hr IV .Q20H MANUEL; Protocol Stop: 06/11/25 01:20 Last Admin: 06/06/25 02:27 Dose: 50 mcg/hr, 5.1 mls/hr Ondansetron HCl (Ondansetron Inj 2 Mg/Ml Inj 2 Ml) 4 mg IVP Q6H PRN; Protocol PRN Reason: NAUSEA OR VOMITING Stop: 07/06/25 03:19 Pantoprazole Sodium (Pantoprazole Inj 40 Mg Vial) 40 mg IVP BID MANUEL Stop: 07/06/25 08:59 Discontinued Medications Sodium Chloride (Ns) 1,000 mls @ 999 mls/hr IV .Q1H1M ONE Stop: 06/06/25 01:04 Last Infusion: 06/06/25 01:29 Dose: Infused Octreotide Acetate (Octreotide Acet Inj 50 Mcg/Ml Vial) 50 mcg IV X1 ONE Stop: 06/06/25 01:21 Last Admin: 06/06/25 02:28 Dose: 50 mcg Pantoprazole Sodium (Pantoprazole Inj 40 Mg Vial) 80 mg IVP X1 ONE Stop: 06/06/25 01:18 Last Admin: 06/06/25 02:25 Dose: 80 mg Assessment & Plan Plan Mr. Schwab is a 65 y/o male with PMH of EtOH use disorder, HLD, T2DM who presented to the ED on 06/05 with multiple episodes of hematemis i/s/o EtOH and NSAID use. Admitted for upper GI bleed. #Acute encephalopathy i/s/o hypotension 2/2 upper GI bleed 2L IVF given in ED Plan: - Continue 2nd liter IVF, reassess volume status and mental status #Hematemesis #Suspected upper GI bleed #Hypotension 2/2 Hypovolemia Multiple episodes of hematemesis i/s/o daily EtOH and NSAID use Initial HR 50s-70s, BP 100s / 50-60s FOBT positive Started octreotide, pantoprazole IV, IVF in ED Plan: - Octreotide 50 mcg/hr IV - Pantroprazole 40 mg IV BID - Ceftriaxone 1g IV daily for SBP prophylaxis - Pending Liver US read #Normocytic normochromic anemia i/s/o upper GI bleed On admit: hgb 6.9, HC T20.1 s/p 1U pRBC transfusion in ED Plan: - Pending post-transfusion CBC #Complicated UTI Denies urinary sx Afebrile, UA 3+ glucose, +LE, WBC 38, 4+ bacteria Plan: - Ceftriaxone 1g IV daily - Pending urine cx #T2DM Home med: Metformin (pending med rec for dose) Plan: - Pending A1C - Carb consistent diet with SSI when appropriate #Hyperlipidemia Not currently on any statins Plan: - Pending lipid panel #EtOH use disorder #Tobacco use disorder Plan: - Magistrate Judge pt on cessation #Constipation Pt has been constipated for the past few days Plan: - Doc/senna PRN when appropriate Checklist Dispo: Admit to tele, pending GI recs Diet: NPO Bowel Reg: doc/senna PRN when appropriate VTE ppx: SCD GI ppx: Pantoprazole 40 mg IV BID Pain mgmt: Tylenol PRN Code status: full Plan discussed with Dr. Davis and Dr. Avelino Watkins MD PGY1 Attending Provider Attestation/Addendum After examination of the patient and review of the clinical data I feel that this patient needs admission to the hospital for further treatment/evaluation. Plan of care discussed with patient and is in agreement. I Luci You MD, attest that I was physically present for arceo portions of evaluation, and examined patient, labs and imagings and plan of care were discussed with IM residents team, and I agree with the findings and plans documented above.
--- NOTE | 2025-06-06 04:11 | XR_ITS ---
Examination: CT abdomen and pelvis without contrast. Coronal 3-D reconstructions. Sagittal 2-D reconstructions. Date and time of exam:June 06, 2025, 6006 hours Indications: Mid abdominal pain beginning 3 days ago CTDI: vol (mGy): 4.29 DLP: (mGycm): 211 Technique: Axial images of the abdomen have been obtained, 3 mm slice thickness Intravenous contrast material has not been administered. Low dose protocols were performed. One or more of the following dose reduction techniques were used; automated exposure control, adjustment of the mA and/or KV according to patient size, use of iterative reconstruction technique. Findings: No visualized liver or splenic lesion Absent gallbladder No extra hepatic biliary tract dilatation No pancreatic mass Adrenal glands are not enlarged Bilateral 1 to 2 mm multiple renal calculi, no hydronephrosis or ureteral calculi Abdominal aortic calcification no aneurysmal dilatation No pericecal inflammatory change No bowel obstruction Colonic diverticulosis Normal seminal vesicles Transverse prostate dimension 4.2 cm Urinary bladder wall thickening anteriorly up to 7 mm Moderate osteopenia Impression: Bilateral tiny nonobstructing renal calculi, no hydronephrosis or ureteral calculi No CT findings of appendicitis bowel obstruction or diverticulitis Mild prostatomegaly Urinary bladder wall thickening anteriorly up to 7 mm, cystitis would be included in the differential, clinical correlation advised
[2025-06-06 04:55] LABS: Basophils # (Auto) 0.0 Thou/mm3 (0.0-0.2); Basophils % (Auto) 0 % (0-2.5); Eosinophils # (Auto) 0.1 Thou/mm3 (0.0-0.5); Eosinophils % (Auto) 2 % (0-10); Hematocrit 24.3 % (41.0-53.0); Immature Granulocytes Auto 0.03 Thou/mm3 (0.00-0.00); Lymphocytes # (Auto) 2.0 Thou/mm3 (1.0-4.8); Lymphocytes % (Auto) 23 % (10-50); Mean Corpuscular HGB Conc 33.3 g/dl (31.0-37.0); Mean Corpuscular Hemoglobin 31.6 pg (25.0-35.0); Mean Corpuscular Volume 95 fL (80-100); Monocytes # (Auto) 0.8 Thou/mm3 (0.0-0.8); Monocytes % (Auto) 9 % (0-12); Neutrophils # (Auto) 5.7 Thou/mm3 (1.8-7.7); Neutrophils % (Auto) 66 % (37-80); Nucleated Red Blood Cell # 0.00 Thou/mm3 (0.00-0.00); Nucleated Red Blood Cell % 0 /100 WBC (0); Platelet Count 280 Thou/mm3 (140-440); RDW Standard Deviation 53.7 fL (35.1-43.9); Red Blood Count 2.56 Miln/mm3 (4.50-5.90); White Blood Count 8.6 Thou/mm3 (3.8-10.6)
[2025-06-06 04:56] LABS: Hemoglobin 8.1 g/dL (13.5-16.0)
[2025-06-06 05:10] LABS: Glucose Estimated Average 117 mg/dL (80-131); Hemoglobin A1C 5.7 % Hgb (4.8-6.0)
[2025-06-06 05:22] LABS: Anion Gap 9 (7-16); BUN/Creatinine Ratio 84 Ratio (12-20); Blood Urea Nitrogen 42 mg/dL (9-23); Calcium 7.8 mg/dL (8.3-10.6); Carbon Dioxide 24.1 mMol/L (20.0-31.0); Cardiac Risk Estimate 4.7 RATIO (4.0-6.7); Chloride 110 mMol/L (98-107); Cholesterol 85 mg/dL (132-200); Creatinine (Component) 0.5 mg/dL (0.6-1.3); Estimated Creatinine Clearance 91.5 mL/min (>60); Glucose 100 mg/dL (74-106); HDL Cholesterol 18 mg/dL (40-60); LDL Cholesterol,Calculated 41 mg/dL (0-130); Magnesium 1.9 mg/dL (1.6-2.6); Osmolality,Calculated 295 (275-295); Potassium 4.1 mMol/L (3.4-5.1); Sodium 143 mMol/L (136-145); Triglycerides 132 mg/dL (30-150); eGFR > 60 See Note
[2025-06-06] MEDS: cefTRIAXone/D5w 1gm IV premix 1 GM/50 ML BAG IV ×2 (05:31→08:06)
[2025-06-06 07:34] LABS: Hematocrit 28.8 % (41.0-53.0); Hemoglobin 9.7 g/dL (13.5-16.0)
[2025-06-06] MEDS: CALCIUM CARBONATE 600 MG TABLET PO (08:08)
[2025-06-06] MEDS: THIAMINE INJ 100 MG/ML VIAL 2 ML IVP (08:09)
[2025-06-06 09:13] LABS: Amphetamine/Methamp Scrn,U Positive (Negative); Barbiturate Screen,Urine Negative (Negative); Benzodiazepines Screen,Urine Negative (Negative); Benzoylecgonine Screen, Ur Negative (Negative); Fentanyl Screen,Urine Negative (Negative); Opiate Screen,Urine Negative (Negative); THC Screen,Urine Negative (Negative)
[2025-06-06 09:15] LABS: Alcohol, Urine Negative (Negative)
--- NOTE | 2025-06-06 09:56 | ESPR_ITS ---
<Statement entered by Catherine Shoemaker MD - 06/13/25 12:10> I reviewed above note and agree with findings and plans. I have also personally examined the patient with medicine team and went over assessment and plan with medical team including internal combustion engine subassembler and resident physician. <Statement entered by Marc Lay MD - 06/06/25 19:47> I saw and examined patient personally and supervised PGY 1 resident, Dr. Montoya with formulating a management plan. I agree with the documentation with the exceptions as listed below. Mr. Schwab is a 65 y/o male with PMH of EtOH use disorder, HLD, T2DM who presented to the ED on 06/05 with multiple episodes of hematemis over the past 24 hours. Problem list: 1. Acute blood loss anemia secondary to GI bleed for investigation 2. Hypotension secondary to hypovolemia due to acute blood loss anemia?resolved 3. Protein calorie malnutrition 4. Chronic nicotine dependence 5. Asymptomatic bacteriuria 6. NIDDM type II 7. Hyperlipidemia 8. Alcohol use disorder Patient presented with hematemesis and was found to have Hb of 6.8 on admission and subsequently transfused 2 units of PRBCs. Hb improved to 9.7 posttransfusion. Gastroenterology, Dr. Orellana was consulted for GI bleed for investigation. Patient has an ongoing history of progressively worsening weight loss over the past few years according to his . He appears cachectic with a BMI of 17.4 and also has a extensive smoking history. CT chest was ordered to screen for malignancy. For patient's alcohol use disorder, he was placed on CIWA protocol prophylactically. Plan of care discussed with Attending Dr. Sahara Lay MD PGY 2 Disclaimer: This note was dictated by speech recognition. Minor errors in civilian jail officer may be present due to voice recognition software. Documentation for date of: 06/06/25 Subjective Subjective Interval history: Patient examined bedside, labs reviewed, heat and frost insulator helper used. Patient reports feeling weak but is not sleepy, states his vomit was brown with bright red streaks in it, however he vomited due to nausea (not pain) right after drinking coffee. Patient has no other complaints or symptoms to report at this time. Exam Vital Signs Temp Pulse Resp BP Pulse Ox O2 Del Method 97.3 F 69 17 107/53 L 99 Room Air 06/06/25 08:00 06/06/25 08:00 06/06/25 08:00 06/06/25 08:00 06/06/25 08:00 06/06/25 08:00 Narrative Exam General: No acute distress, cachectic, able to respond to questions AOx2 (knows name, and location, unsure of date/year/who president is) Eye: PERRL, EOMI HENT: Normocephalic, atraumatic, normal hearing Neck: Supple, non-tender, no JVD, no lymphadenopathy Lungs: Clear to auscultation bilaterally, non-labored respirations, symmetric chest rise, no use of accessory muscles Heart: Normal S1 and S2, no S3 or S4 appreciated. Normal rate and regular rhythm, no murmurs, rubs gallops, or edema. Peripheral pulses intact bilaterally, capillary refill brisk distally Abdomen: Soft, non-tender, non-distended, normal bowel sounds. No guarding or rebound tenderness. Musculoskeletal: Normal range of motion and strength Skin: Skin is warm, dry, no rashes or lesions. Neurologic: No focal neurological deficits. Moving all extremities spontaneously Objective Labs 06/06/25 07:13 06/06/25 04:40 Labs: Laboratory Results - last 24 hr 06/06/25 06/06/25 06/06/25 00:05 00:19 00:57 WBC 7.8 RBC 2.10 L Hgb 6.9 L* Hct 20.1 L* MCV 96 MCH 32.9 MCHC 34.3 RDW Std Deviation 50.7 H Plt Count 327 Neut % (Auto) 65 Lymph % (Auto) 24 [place] % (Auto) 8 Eos % (Auto) 1 Baso % (Auto) 1 Neut # (Auto) 5.1 Lymph # (Auto) 1.9 [place] # (Auto) 0.7 Eos # (Auto) 0.1 Baso # (Auto) 0.0 Immature Gran # (Auto) 0.02 H Absolute Nucleated RBC 0.00 Immature Gran % 0 Nucleated RBC % 0 Smear Path Review Sent to Pathologist PT 10.7 INR 1.0 APTT 27.0 Sodium 140 Potassium 3.7 Chloride 104 Carbon Dioxide 27.1 Anion Gap 9 BUN 44 H Creatinine 0.6 Estim Creat Clear Calc 76.2 eGFR > 60 BUN/Creatinine Ratio 73 H Glucose [address] Glu mg/dL Hemoglobin A1c Calculated Osmolality 291 Calcium 9.2 Corrected Calcium 9.7 Phosphorus 3.2 Magnesium 2.1 Total Bilirubin 0.5 AST 35 H ALT 11 Alkaline Phosphatase 67 Troponin I < 0.020 Total Protein 6.0 Albumin 3.4 Globulin 2.6 Albumin/Globulin Ratio 1.3 Triglycerides Cholesterol LDL Cholesterol, Calc HDL Cholesterol Cholesterol/HDL Ratio Lipase 30 Ur Collection Type Catheter Urine Color Lt-Yellow Urine Clarity Clear Urine pH 6.5 Ur Specific [place] 1.018 Urine Protein Negative Urine Glucose (UA) 3+ A Urine Ketones Negative Urine Blood Negative Urine Nitrite Negative Urine Bilirubin Negative Urine Urobilinogen (Auto) Negative Ur Leukocyte Esterase Positive Urine RBC < 1 Urine WBC 38 H Ur Squamous Epith Cells < 1 Urine Bacteria 4+ A Hyaline Casts < 1 Ur Culture Indicated? Yes Stool Occult Blood Positive A Urine Opiates Screen Urine Fentanyl Screen Ur Barbiturates Screen U Amphetamin/Meth Scrn U Benzodiazepines Scrn U Cocaine Metab Screen U Marijuana (THC) Screen Urine Alcohol Ethyl Alcohol < 3.0 HIV 1&2 Antibody Rapid Non-Reactive Blood Type O Positive Antibody Screen NEGATIVE Crossmatch See Detail Blood Bank Wristband ID Yes 06/06/25 06/06/25 06/06/25 04:40 07:13 08:25 WBC 8.6 RBC 2.56 L Hgb 8.1 L 9.7 L Hct 24.3 L 28.8 L MCV 95 MCH 31.6 MCHC 33.3 RDW Std Deviation 53.7 H Plt Count 280 D Neut % (Auto) 66 Lymph % (Auto) 23 [place] % (Auto) 9 Eos % (Auto) 2 Baso % (Auto) 0 Neut # (Auto) 5.7 Lymph # (Auto) 2.0 [place] # (Auto) 0.8 Eos # (Auto) 0.1 Baso # (Auto) 0.0 Immature Gran # (Auto) 0.03 H Absolute Nucleated RBC 0.00 Immature Gran % 0 Nucleated RBC % 0 Smear Path Review PT INR APTT Sodium 143 Potassium 4.1 Chloride 110 H Carbon Dioxide 24.1 Anion Gap 9 BUN 42 H Creatinine 0.5 L Estim Creat Clear Calc 91.5 eGFR > 60 BUN/Creatinine Ratio 84 H Glucose [address] Glu mg/dL 117 Hemoglobin A1c 5.7 Calculated Osmolality 295 Calcium 7.8 L Corrected Calcium Phosphorus Magnesium 1.9 Total Bilirubin AST ALT Alkaline Phosphatase Troponin I Total Protein Albumin Globulin Albumin/Globulin Ratio Triglycerides 132 Cholesterol 85 L LDL Cholesterol, Calc 41 HDL Cholesterol 18 L Cholesterol/HDL Ratio 4.7 Lipase Ur Collection Type Urine Color Urine Clarity Urine pH Ur Specific [place] Urine Protein Urine Glucose (UA) Urine Ketones Urine Blood Urine Nitrite Urine Bilirubin Urine Urobilinogen (Auto) Ur Leukocyte Esterase Urine RBC Urine WBC Ur Squamous Epith Cells Urine Bacteria Hyaline Casts Ur Culture Indicated? Stool Occult Blood Urine Opiates Screen Negative Urine Fentanyl Screen Negative Ur Barbiturates Screen Negative U Amphetamin/Meth Scrn Positive A U Benzodiazepines Scrn Negative U Cocaine Metab Screen Negative U Marijuana (THC) Screen Negative Urine Alcohol Negative Ethyl Alcohol HIV 1&2 Antibody Rapid Blood Type Antibody Screen Crossmatch Blood Bank Wristband ID Quality Measures Quality Measures none Advance care planning discussed with:: other Assessment & Plan Assessment Current Active Medications: Generic Name Dose Route Start Last Admin Trade Name Freq PRN Reason Stop Dose Admin Acetaminophen 650 mg 06/06/25 03:20 Acetaminophen 325 Mg Tablet PO 07/06/25 03:19 Q6H PRN PAIN SCALE 1-3 (mild Acetaminophen 650 mg 06/06/25 06:30 Acetaminophen 325 Mg Tablet PO 07/06/25 03:19 Q6H PRN Fever >100.4 Dextrose 25 ml 06/06/25 06:22 Dextrose 50%-Water Inj 50 Ml Syringe IV 07/06/25 06:21 Q15MIN PRN BG 50-70 responsive npo pt Dextrose 50 ml 06/06/25 06:22 Dextrose 50%-Water Inj 50 Ml Syringe IV 07/06/25 06:21 Q15MIN PRN BG <50 OR BG <70 & pt unresponsive Diazepam 2.5 mg 06/06/25 07:53 Diazepam Inj 5 Mg/Ml Vial 2 Ml IVP 06/11/25 07:52 Q2HR PRN CIWA SCORE 8-13 Diazepam 5 mg 06/06/25 07:53 Diazepam Inj 5 Mg/Ml Vial 2 Ml IVP 06/11/25 07:52 Q2HR PRN CIWA SCORE 14-19 Diazepam 10 mg 06/06/25 07:53 Diazepam Inj 5 Mg/Ml Vial 2 Ml IVP 06/11/25 07:52 Q2HR PRN CIWA SCORE 20-25 Diazepam 10 mg 06/06/25 07:53 Diazepam Inj 5 Mg/Ml Vial 2 Ml IVP X1 PRN Breakthrough Agitation Glucagon 1 mg 06/06/25 06:22 Glucagon Inj 1 Mg Vial IM Q15MIN PRN BG <70, and no IV access Octreotide Acetate 1,000 mcg/ 102 mls @ 5.1 mls/hr 06/06/25 01:20 06/06/25 02:27 Sodium Chloride IV 06/06/25 21:19 50 mcg/hr .Q20H MANUEL 5.1 mls/hr Protocol Administration 50 MCG/HR Ceftriaxone Sodium/Dextrose 1 gm in 50 mls @ 100 mls/hr 06/06/25 04:05 06/06/25 08:06 Rocephin/D5w 1gm Iv Premix IV 06/13/25 04:04 100 mls/hr QDAY MANUEL Administration Octreotide Acetate 1,000 mcg/ 102 mls @ 5.1 mls/hr 06/06/25 21:20 Sodium Chloride IV 06/11/25 01:20 .Q20H MANUEL Protocol 50 MCG/HR Insulin Human Lispro 0 unit 06/06/25 06:30 06/06/25 06:34 Insulin Lispro (Admelog) 1 Unit/0.01 Ml Unit SC 07/06/25 06:29 Not Given Q6HR MANUEL Protocol Ondansetron HCl 4 mg 06/06/25 03:20 Ondansetron Inj 2 Mg/Ml Inj 2 Ml IVP 07/06/25 03:19 Q6H PRN NAUSEA OR VOMITING Protocol Pantoprazole Sodium 40 mg 06/06/25 09:00 06/06/25 08:07 Pantoprazole Inj 40 Mg Vial IVP 07/06/25 08:59 40 mg BID MANUEL Administration Sennosides 1 tab 06/06/25 03:55 Senna/Docusate Sod 1 Tab Tablet PO 07/06/25 03:54 QDAY PRN CONSTIPATION Protocol Thiamine HCl 100 mg 06/06/25 09:00 06/06/25 08:09 Thiamine Inj 100 Mg/Ml Vial 2 Ml IVP 07/06/25 08:59 100 mg QDAY MANUEL Administration Plan Mr. Schwab is a 65 y/o male with PMH of EtOH use disorder, HLD, T2DM who presented to the ED on 06/05 with multiple episodes of hematemis i/s/o EtOH and NSAID use. Admitted for upper GI bleed. Pending EGD/visit from GI specialist Dr. Orellana. #Acute blood loss anemia 2/2 upper GI bleed #Upper GI bleed #Hypotension 2/2 Hypovolemia #Normocytic normochromic anemia (due to acute blood loss) Multiple episodes of hematemesis i/s/o daily EtOH and NSAID use. Initial HR 50s- 70s, BP 100s / 50-60s. FOBT positive. Started octreotide, pantoprazole IV, IVF in ED. Liver US: absent gallbladder, normal CBD, primary hepatocellular dz vs cirrhosis, no focal liver lesions. 2 units of pRBCs given overnight Hgb now 9.7. Plan: - Octreotide 50 mcg/hr IV - Pantroprazole 40 mg IV BID - Ceftriaxone 1g IV daily for SBP prophylaxis - GI consulted, recs appreciated #Cachexia #Hx of smoking BMI 17. Very thin man. History of smoking adn weight loss in recent years. Concern for malignancy Plan: -CTCAP with con: #Acute encephalopathy - resolving i/s/o hypotension 2/2 upper GI bleed. 2L IVF given in ED. Patient is AOx2, unable to assess his baseline at the moment will discuss with family. Is alert and awake, able to make comprehensive responses. Plan: - Continue 2nd liter IVF, reassess volume status and mental status #Asymptomatic bacteriuria Denies urinary sx Afebrile, UA 3+ glucose, +LE, WBC 38, 4+ bacteria Plan: - Ceftriaxone 1g IV daily - Pending urine cx #T2DM Home med: Metformin (pending med rec for dose). A1C: 5.7. Plan: - Carb consistent diet with SSI when appropriate #Hyperlipidemia Not currently on any statins. Lipid panel: triglycerides 132, cholesterol 85, LDL 41 HDL 18 Plan: - NTD #Polysubstance use #EtOH use disorder #CIWA #Tobacco use disorder Plan: - Metal Melter pt on cessation - CIWA protocol initiated #Constipation Pt has been constipated for the past few days Plan: - Doc/senna PRN when appropriate Checklist Dispo: Admit to tele, pending GI recs Diet: NPO Bowel Reg: doc/senna PRN when appropriate VTE ppx: SCD GI ppx: Pantoprazole 40 mg IV BID Pain mgmt: Tylenol PRN Code status: full Plan discussed and patient examined with supervising resident Dr. Lay and attending Dr. Sahara Montoya MD PGY1
--- NOTE | 2025-06-06 10:36 | XR_ITS ---
Examination: CT chest with intravenous contrast 2-D sagittal and coronal reconstructions Exam date and time: June 06, 2025, 1607 hrs. Indications: Onset mid to lower chest pain beginning 3 days ago CTDI:vol (mGy) 6.48 DLP: (mGycm) 262 Technique: Multiple axial sections of the thorax have been obtained. Sections have been obtained, 3 mm slice thickness. Mediastinal and lung density settings have been obtained. Intravenous contrast administered, 60 cc [id number]. 2-D sagittal, coronal images obtained. Low dose protocols were performed. One or more of the following dose reduction techniques were used; automated exposure control, adjustment of the mA and/or KV according to patient size, use of iterative reconstruction technique. Findings: No thoracic aortic aneurysm dilatation or dissection Pulmonary artery segments are not enlarged No pulmonary artery emboli No paratracheal tracheobronchial or bronchopulmonary adenopathy No pneumonia or pulmonary edema Minor atelectasis in the left lower lobe 6 mm pulmonary nodule right lower lobe medially image 169 Gastric mucosa appears thickened No visualized liver or splenic lesion Absent gallbladder Moderate osteopenia Impression: No thoracic aortic aneurysm dilatation or dissection Negative for pulmonary artery emboli No mediastinal lymphadenopathy 6 mm pulmonary nodule right lower lobe, recommend 6 month follow-up CT chest without contrast Gastritis pattern
--- NOTE | 2025-06-06 11:43 | PC.SS ---
mental health social worker (SW) met with the patient at bedside to complete the initial assessment and discuss a discharge plan. Per chart review, the patient was admitted with c/o multiple episodes of hematemesis over the past 24 hours. SW introduced self, role, and the reason for the consult. The patient agreed to engage in the assessment. Patient is alert and oriented to person, place, time, and situation. The patient is Shamar Taylor, 65 y/o , Ukrainian-speaking male residing with his and daughter at [address] [place] [address]. Patient designated his daughter, Kasey Taylor, , as his surrogate medical decision maker. Patient reports his baseline is independent with no DME. Patient reports not having a PCP but goes to [facility] in [place] for medical needs. The Patient's discharge plan is home once medically clear, and his daughter will provide transportation. SW provided the patient with AOD resources and education on alcohol cessation. Per GME resident, patient is pending a GI consult. Surrogate medical decision maker: Daughter, Kasey Schwab, Discharge plan: Home
--- NOTE | 2025-06-06 14:39 | PC.SS ---
SW follow-up note: Patient is pending GI consult and possible endoscopy.
--- NOTE | 2025-06-06 15:54 | PD.IMCONS ---
HPI Data of Consult Requesting Physician: Luci You MD Primary Care Provider: Giovanni Lutz PA-C Consult Narrative Reason for consult: Posthemorrhagic anemia, hematemesis. History of present illness: 65 years old male presented with episodes of hematemesis and the presenting hemoglobin of 6.6 g He drinks about 4 beers a day and has underlying diabetes mellitus He does not take any NSAIDs except Tylenol Liver ultrasound shows absent gallbladder normal common bile duct irregular contour of the liver liver size is [address] scan of the abdomen pelvis without contrast shows tiny renal stones otherwise no other significant findings CT scan chest shows a pulmonary nodule otherwise negative cc:: cc: Luci You MD Review of Systems Review of Systems Systems Reviewed: All systems reviewed, normal except as documented Past Medical History Surgical History OTHER SURGICAL HX: Diabetes mellitus type 2 Meds Home Medications and Allergies Home Medications ?Medication ?Instructions ?Recorded ?Confirmed ?Type atorvastatin 40 mg tablet 40 mg PO QDAY 06/06/25 06/06/25 History empagliflozin 5 mg-metformin 1,000 1 tab PO QDAY 06/06/25 06/06/25 History mg tablet (Synjardy) Allergies Allergy/AdvReac Type Severity Reaction Status Date / Time No Known Allergies Allergy Verified 03/09/25 21:14 Exam Vital Signs Temp Pulse Resp BP Pulse Ox O2 Del Method 96.8 F 61 18 99/57 L 98 Room Air 06/06/25 12:00 06/06/25 12:00 06/06/25 12:00 06/06/25 12:00 06/06/25 12:00 06/06/25 12:00 Constitutional Comments: Chronically ill-appearing Routine Respiratory Exam Comments: Normal to auscultation Routine Abdominal Exam Comments: Soft nontender Results Labs 06/06/25 07:13 06/06/25 04:40 Labs: Short CBC 06/06/25 06/06/25 06/06/25 Range/Units 00:05 04:40 07:13 WBC 7.8 8.6 (3.8-10.6) Thou/mm3 Hgb 6.9 L* 8.1 L 9.7 L (13.5-16.0) g/dL Hct 20.1 L* 24.3 L 28.8 L (41.0-53.0) % Plt Count 327 280 D (140-440) Thou/mm3 BMP 06/06/25 06/06/25 00:05 04:40 Sodium 140 143 Potassium 3.7 4.1 Chloride 104 110 H Carbon Dioxide 27.1 24.1 BUN 44 H 42 H Creatinine 0.6 0.5 L Glucose 113 H 100 Calcium 9.2 7.8 L Cardiac Enzymes 06/06/25 Range/Units 00:05 Troponin I < 0.020 (0.0-0.045) ng/mL Liver Function 06/06/25 Range/Units 00:05 Total Bilirubin 0.5 (0.3-1.2) mg/dL AST 35 H (0-34) U/L ALT 11 (10-49) U/L Alkaline Phosphatase 67 (46-116) U/L Albumin 3.4 (3.4-4.8) gm/dL Urine 06/06/25 Range/Units 00:57 Urine Color Lt-Yellow (Lt Yel-Yel) Urine Clarity Clear (Clear/Hazy) Urine pH 6.5 (5.0-7.0) Ur Specific [place] 1.018 (1.001-1.035) Urine Protein Negative (Neg - Trace) Urine Glucose (UA) 3+ A (Negative) Assessment and Plan Additional Assessment & Plan Additional Plan: # Hematemesis in the setting of chronic liver disease secondary to alcohol # Posthemorrhagic anemia plan Agree with octreotide infusion Agree with IV Protonix consent obtained for fiberoptic esophagogastroduodenoscopy with possible biopsy possible therapeutic intervention under intravenous moderate sedation Other medical problems include Diabetes mellitus type 2
[2025-06-06] MEDS: SODIUM CHLORIDE 0.9% 500 ML 500 ML 20 ML IV (17:56)
--- NOTE | 2025-06-06 18:12 | SUR.PHASEI ---
Pt. arrived to recovery via gurney, eyes closed, responds to verbal commands with slow response, pt. appears sleepy, VSS with exception of bp 93/51, pt. receiving IVF, lung sounds clear, equal expansion alanna., blood glucose on arrival was 111, report received from Odalis MALONEY.
--- NOTE | 2025-06-06 18:50 | SUR.PHASEI ---
Pt. transferred to room 279 via [facility] banks, no c/o pain or nausea at this time, IVs saline locked and capped, Nia MALONEY assumed care of pt.
[2025-06-06 22:17] LABS: Hepatitis C Antibody Non Reactive (Non React)
[2025-06-06] MEDS: NA SU/NAHCO3/KC/PEG (Golytely) 4,000 ML BTL 4000 ML PO (22:37)
[2025-06-06] MEDS: INSULIN LISPRO (AdmeLOG) 1 UNIT/0.01 ML UNIT SC (23:27)
[2025-06-07] VITALS (14 sets, daily range): BP systolic 79–135; BP diastolic 37–66; PULSE 45–72; RESP 12–18; TEMP 36–36.5; O2SAT 94–98; BMI 17.4
[2025-06-07] MEDS: RINGERS LACTATED 1000 ML 1,000 ML 250 ML IV (01:26)
[2025-06-07] MEDS: ACETAMINOPHEN 325 MG TABLET 650 MG PO (05:47)
[2025-06-07 06:00] LABS: Basophils # (Auto) 0.0 Thou/mm3 (0.0-0.2); Basophils % (Auto) 1 % (0-2.5); Eosinophils # (Auto) 0.2 Thou/mm3 (0.0-0.5); Eosinophils % (Auto) 3 % (0-10); Hematocrit 28.0 % (41.0-53.0); Hemoglobin 9.3 g/dL (13.5-16.0); Immature Granulocytes Auto 0.01 Thou/mm3 (0.00-0.00); Lymphocytes # (Auto) 1.8 Thou/mm3 (1.0-4.8); Lymphocytes % (Auto) 33 % (10-50); Mean Corpuscular HGB Conc 33.2 g/dl (31.0-37.0); Mean Corpuscular Hemoglobin 30.9 pg (25.0-35.0); Mean Corpuscular Volume 93 fL (80-100); Monocytes # (Auto) 0.6 Thou/mm3 (0.0-0.8); Monocytes % (Auto) 11 % (0-12); Neutrophils # (Auto) 2.9 Thou/mm3 (1.8-7.7); Neutrophils % (Auto) 52 % (37-80); Nucleated Red Blood Cell # 0.00 Thou/mm3 (0.00-0.00); Nucleated Red Blood Cell % 0 /100 WBC (0); Platelet Count 248 Thou/mm3 (140-440); RDW Standard Deviation 56.5 fL (35.1-43.9); Red Blood Count 3.01 Miln/mm3 (4.50-5.90); White Blood Count 5.6 Thou/mm3 (3.8-10.6)
[2025-06-07 06:25] LABS: Anion Gap 7 (7-16); BUN/Creatinine Ratio 20 Ratio (12-20); Blood Urea Nitrogen 10 mg/dL (9-23); Calcium 8.4 mg/dL (8.3-10.6); Carbon Dioxide 24.7 mMol/L (20.0-31.0); Chloride 111 mMol/L (98-107); Creatinine (Component) 0.5 mg/dL (0.6-1.3); Estimated Creatinine Clearance 97.4 mL/min (>60); Glucose 141 mg/dL (74-106); Magnesium 1.7 mg/dL (1.6-2.6); Osmolality,Calculated 285 (275-295); Phosphorous 2.5 mg/dL (2.4-5.1); Potassium 4.0 mMol/L (3.4-5.1); Sodium 143 mMol/L (136-145); eGFR > 60 See Note
[2025-06-07] MEDS: MIDODRINE 5 MG TABLET 2.5 MG PO (07:49)
[2025-06-07] MEDS: RINGERS LACTATED 1000 ML 1,000 ML 999 ML IV (07:49)
[2025-06-07] MEDS: SENNA/DOCUSATE SOD 1 TAB TABLET PO (07:53)
[2025-06-07] MEDS: ATORVASTATIN CALCIUM 20 MG TABLET 40 MG PO (08:00)
[2025-06-07] MEDS: THIAMINE INJ 100 MG/ML VIAL 2 ML IVP (08:02)
[2025-06-07] MEDS: cefTRIAXone/D5w 1gm IV premix 1 GM/50 ML BAG IV (08:03)
[2025-06-07] MEDS: Magnesium Sulfate 4 GM Ivpb 4 GM/50 ML BAG IV (08:44)
--- NOTE | 2025-06-07 10:09 | XR_ITS ---
Examination: Abdomen AP single view Technique: AP portable supine abdomen, single view Exam date and time: June 07, 2025, 1015 hours INDICATIONS: Abdominal pain and constipation this week. FINDINGS: Moderate to abundant stool throughout the colon Mild small bowel ileus No free air. IMPRESSION: Mild small bowel ileus Moderate to abundant stool throughout the colon No obstruction
[2025-06-07] MEDS: INSULIN LISPRO (AdmeLOG) 1 UNIT/0.01 ML UNIT SC ×2 (12:11→23:54)
--- NOTE | 2025-06-07 12:21 | PC.SS ---
SS follow up note; Patient is pending a Colonoscopy. Patient will discharge home when medically cleared.
--- NOTE | 2025-06-07 13:27 | ESPR_ITS ---
<Statement entered by Catherine Shoemaker MD - 06/13/25 12:11> I reviewed above note and agree with findings and plans. I have also personally examined the patient with medicine team and went over assessment and plan with medical team including fashion intern and resident physician. <Statement entered by Marc Lay MD - 06/07/25 18:22> I saw and examined patient personally and supervised PGY 1 resident, Dr. Montoya with formulating a management plan. I agree with the documentation with the exceptions as listed below. Mr. Schwab is a 65 y/o male with PMH of EtOH use disorder, HLD, T2DM who presented to the ED on 06/05 with multiple episodes of hematemis over the past 24 hours. Problem list: 1. Acute blood loss anemia secondary to GI bleed for investigation ?resolving 2. Hypotension secondary to hypovolemia due to acute blood loss anemia? resolving 3. Decompensated alcoholic cirrhosis with grade 1 esophageal varices 4. Protein calorie malnutrition 5. Chronic nicotine dependence 6. Asymptomatic bacteriuria 7. NIDDM type II 8. Hyperlipidemia 9. Alcohol use disorder 10. Pulmonary nodule Patient underwent EGD on 06/06/2025 which revealed grade 1 esophageal varices, esophageal ulcer and gastritis. Patient continues to be on day 3 of octreotide infusion and is undergoing GoLytely bowel prep for colonoscopy once cleared. This a.m. patient's MAP was 50s and he was subsequently started on midodrine 10 mg p.o. 3 times daily. His MAP improved to 67 after midodrine. For patient's alcohol use disorder he continues to be on CIWA protocol. So far has not shown any signs of withdrawal. His 6 mm pulmonary nodule will be followed up with interval CT scan as outpatient. Plan of care discussed with Attending Dr. Sahara Lay MD PGY 2 Disclaimer: This note was dictated by speech recognition. Minor errors in criminal justice professor may be present due to voice recognition software. Documentation for date of: 06/07/25 Subjective Subjective Interval history: Patient examined bedside, labs reviewed, irrigation district manager used. Patient had low blood presures MAP: 50s systolic 70-80s diastolic: 43 given 1 L LR bolus and midodrine PRN, BPs responded to bolus. EGD yesterday showed grade 1 esophageal varices, erythematous mucosa in the stomach. Plan for colonoscopy tonight. Patient has no complaints, does not feel light headed, SOB, chest pains, or NVD. However still uncertain of the year, but knows the date except that. Exam Vital Signs Temp Pulse Resp BP Pulse Ox O2 Del Method O2 Flow Rate 97.3 F 52 L 17 109/63 98 Room Air 2 06/07/25 12:00 06/07/25 12:00 06/07/25 12:00 06/07/25 12:00 06/07/25 12:00 06/07/25 12:00 06/06/25 18:22 Narrative Exam General: No acute distress, cachectic, able to respond to questions AOx2 (knows name, and location, unsure of date/year/who president is) Eye: PERRL, EOMI HENT: Normocephalic, atraumatic, normal hearing Neck: Supple, non-tender, no JVD, no lymphadenopathy Lungs: Clear to auscultation bilaterally, non-labored respirations, symmetric chest rise, no use of accessory muscles Heart: Normal S1 and S2, no S3 or S4 appreciated. Normal rate and regular rhythm, no murmurs, rubs gallops, or edema. Peripheral pulses intact bilaterally, capillary refill brisk distally Abdomen: Soft, non-tender, non-distended, normal bowel sounds. No guarding or rebound tenderness. Musculoskeletal: Normal range of motion and strength Skin: Skin is warm, dry, no rashes or lesions. Neurologic: No focal neurological deficits. Moving all extremities spontaneously Objective Labs 06/07/25 04:44 06/07/25 15:28 Labs: Laboratory Results - last 24 hr 06/06/25 06/07/25 04:40 04:44 WBC 5.6 RBC 3.01 L Hgb 9.3 L Hct 28.0 L MCV 93 MCH 30.9 MCHC 33.2 RDW Std Deviation 56.5 H Plt Count 248 D Neut % (Auto) 52 Lymph % (Auto) 33 [place] % (Auto) 11 Eos % (Auto) 3 Baso % (Auto) 1 Neut # (Auto) 2.9 Lymph # (Auto) 1.8 [place] # (Auto) 0.6 Eos # (Auto) 0.2 Baso # (Auto) 0.0 Immature Gran # (Auto) 0.01 H Absolute Nucleated RBC 0.00 Immature Gran % 0 Nucleated RBC % 0 Sodium 143 Potassium 4.0 Chloride 111 H Carbon Dioxide 24.7 Anion Gap 7 BUN 10 Creatinine 0.5 L Estim Creat Clear Calc 97.4 eGFR > 60 BUN/Creatinine Ratio 20 Glucose 141 H Calculated Osmolality 285 Calcium 8.4 Phosphorus 2.5 Magnesium 1.7 Hepatitis C Antibody Non Reactive Quality Measures Quality Measures none Advance care planning discussed with:: other Assessment & Plan Assessment Current Active Medications: Generic Name Dose Route Start Last Admin Trade Name Freq PRN Reason Stop Dose Admin Acetaminophen 650 mg 06/06/25 03:20 06/07/25 05:47 Acetaminophen 325 Mg Tablet PO 07/06/25 03:19 650 mg Q6H PRN Administration PAIN SCALE 1-3 (mild Acetaminophen 650 mg 06/06/25 06:30 Acetaminophen 325 Mg Tablet PO 07/06/25 03:19 Q6H PRN Fever >100.4 Atorvastatin Calcium 40 mg 06/07/25 09:00 06/07/25 08:00 Atorvastatin Calcium 20 Mg Tablet PO 07/07/25 08:59 40 mg QDAY MANUEL Administration Dextrose 25 ml 06/06/25 06:22 Dextrose 50%-Water Inj 50 Ml Syringe IV 07/06/25 06:21 Q15MIN PRN BG 50-70 responsive npo pt Dextrose 50 ml 06/06/25 06:22 Dextrose 50%-Water Inj 50 Ml Syringe IV 07/06/25 06:21 Q15MIN PRN BG <50 OR BG <70 & pt unresponsive Diazepam 2.5 mg 06/06/25 07:53 Diazepam Inj 5 Mg/Ml Vial 2 Ml IVP 06/11/25 07:52 Q2HR PRN CIWA SCORE 8-13 Diazepam 5 mg 06/06/25 07:53 Diazepam Inj 5 Mg/Ml Vial 2 Ml IVP 06/11/25 07:52 Q2HR PRN CIWA SCORE 14-19 Diazepam 10 mg 06/06/25 07:53 Diazepam Inj 5 Mg/Ml Vial 2 Ml IVP 06/11/25 07:52 Q2HR PRN CIWA SCORE 20-25 Diazepam 10 mg 06/06/25 07:53 Diazepam Inj 5 Mg/Ml Vial 2 Ml IVP X1 PRN Breakthrough Agitation Glucagon 1 mg 06/06/25 06:22 Glucagon Inj 1 Mg Vial IM Q15MIN PRN BG <70, and no IV access Ceftriaxone Sodium/Dextrose 1 gm in 50 mls @ 100 mls/hr 10/05/25 04:05 06/07/25 08:03 Rocephin/D5w 1gm Iv Premix IV 06/13/25 04:04 100 mls/hr QDAY MANUEL Administration Octreotide Acetate 1,000 mcg/ 102 mls @ 5.1 mls/hr 06/06/25 21:20 06/06/25 21:04 Sodium Chloride IV 06/11/25 01:20 50 mcg/hr .Q20H MANUEL 5.1 mls/hr Protocol Administration 50 MCG/HR Sodium Chloride 500 mls @ 20 mls/hr 06/06/25 17:22 06/06/25 17:56 Ns IV 06/07/25 17:21 20 mls/hr .Q24H ONE Administration Insulin Human Lispro 0 unit 06/06/25 06:30 06/07/25 12:11 Insulin Lispro (Admelog) 1 Unit/0.01 Ml Unit SC 07/06/25 06:29 2 unit Q6HR MANUEL Administration Protocol Midodrine 10 mg 06/07/25 10:10 Midodrine 5 Mg Tablet PO 07/07/25 13:59 TID PRN MAP <65 Ondansetron HCl 4 mg 06/06/25 03:20 Ondansetron Inj 2 Mg/Ml Inj 2 Ml IVP 07/06/25 03:19 Q6H PRN NAUSEA OR VOMITING Protocol Pantoprazole Sodium 40 mg 06/06/25 09:00 06/07/25 08:02 Pantoprazole Inj 40 Mg Vial IVP 07/06/25 08:59 40 mg BID MANUEL Administration (Empagliflozin- 1 ea 06/07/25 09:00 06/07/25 08:18 Metformin [Synjardy] PO 07/07/25 08:59 Not Given 5-1,000 Mg Tablet QDAY MANUEL Sennosides 1 tab 06/06/25 03:55 06/07/25 07:53 Senna/Docusate Sod 1 Tab Tablet PO 07/06/25 03:54 1 tab QDAY PRN Administration CONSTIPATION Protocol Thiamine HCl 100 mg 06/06/25 09:00 06/07/25 08:02 Thiamine Inj 100 Mg/Ml Vial 2 Ml IVP 07/06/25 08:59 100 mg QDAY MANUEL Administration Plan Mr. Schwab is a 65 y/o male with PMH of EtOH use disorder, HLD, T2DM who presented to the ED on 06/05 with multiple episodes of hematemis i/s/o EtOH and NSAID use. Admitted for upper GI bleed. EGD: G1 esophageal varices and erythematous gastric mucosa. Plan for colonoscopy tonight. #Acute blood loss anemia most likely 2/2 esophageal varices #Upper GI bleed #Hypotension 2/2 Hypovolemia #Normocytic normochromic anemia (due to acute blood loss) #Colonoscopy r/o Multiple episodes of hematemesis i/s/o daily EtOH and NSAID use. Initial HR 50s- 70s, BP 100s / 50-60s. FOBT positive. Started octreotide, pantoprazole IV, IVF in ED. Liver US: absent gallbladder, normal CBD, primary hepatocellular dz vs cirrhosis, no focal liver lesions. 2 units of pRBCs given overnight Hgb now 9.7. Plan: - Octreotide 50 mcg/hr IV - Pantroprazole 40 mg IV BID - Ceftriaxone 1g IV daily for SBP prophylaxis - GI consulted, recs appreciated - Colonoscopy today. #Decompensated Liver Dz 2/2 #Alcohol use disorder #Acute encephalopathy - resolving i/s/o hypotension 2/2 upper GI bleed. 2L IVF given in ED. Patient is AOx2, unable to assess his baseline at the moment will discuss with family. Is alert and awake, able to make comprehensive responses. Plan: - Continue 2nd liter IVF, reassess volume status and mental status - Midodrine for low blood pressures #Hypotension - most likely iatrogenic Patient receiving octreotide. Plan: -Midodrine PRN #Cachexia #Hx of smoking BMI 17. Very thin man. History of smoking adn weight loss in recent years. Concern for malignancy. CTCAP with con: 6 mm pulmonary nodule right lower lobe. Plan: -6 month follow-up CT chest without contrast #Constipation Patient not having bowel movements for multiple days and even today despite drinking Golytely. KUB shows abundant stool throughout colon. Plan -Enema x1 -Senna/docusate #Asymptomatic bacteriuria Denies urinary sx Afebrile, UA 3+ glucose, +LE, WBC 38, 4+ bacteria Plan: - Ceftriaxone 1g IV daily - Pending urine cx #T2DM Home med: Metformin (pending med rec for dose). A1C: 5.7. Plan: - Carb consistent diet - SSI Step 2 #Hyperlipidemia Not currently on any statins. Lipid panel: triglycerides 132, cholesterol 85, LDL 41 HDL 18 Plan: -Atorvastatin 40mg PO QD #Polysubstance use #EtOH use disorder #CIWA #Tobacco use disorder Plan: - Language Asst pt on cessation - CIWA protocol initiated #Constipation Pt has been constipated for the past few days Plan: - Doc/senna PRN when appropriate Checklist Dispo: Admit to tele, pending GI recs Diet: NPO Bowel Reg: doc/senna PRN when appropriate VTE ppx: SCD GI ppx: Pantoprazole 40 mg IV BID Pain mgmt: Tylenol PRN Code status: full Plan discussed and patient examined with supervising resident Dr. Lay and attending Dr. Sahara Montoya MD PGY1
[2025-06-07] MEDS: ZINC SULFATE 220 MG CAPSULE PO (15:50)
[2025-06-07 16:09] LABS: Albumin, Serum 2.5 gm/dL (3.4-4.8); Anion Gap 5 (7-16); BUN/Creatinine Ratio 20 Ratio (12-20); Blood Urea Nitrogen 10 mg/dL (9-23); Calcium 7.8 mg/dL (8.3-10.6); Calcium (Corrected) 9.0 mg/dL (8.5-10.1); Carbon Dioxide 29.7 mMol/L (20.0-31.0); Chloride 107 mMol/L (98-107); Creatinine (Component) 0.5 mg/dL (0.6-1.3); Estimated Creatinine Clearance 97.4 mL/min (>60); Glucose 65 mg/dL (74-106); Osmolality,Calculated 280 (275-295); Phosphorous 1.7 mg/dL (2.4-5.1); Potassium 3.8 mMol/L (3.4-5.1); Sodium 142 mMol/L (136-145); eGFR > 60 See Note
[2025-06-07] MEDS: NA SU/NAHCO3/KC/PEG (Golytely) 4,000 ML BTL 4000 ML PO (17:17)
[2025-06-07] MEDS: OCTREOTIDE ACET INJ 1,000 MCG in SODIUM CHLORIDE 0.9% 100 ML 5.1 MCG IV (17:18)
--- NOTE | 2025-06-07 19:22 | PD.IMPROG ---
Documentation for date of: 06/07/25 Subjective Subjective Interval history: Patient evaluated He was scheduled for a colonoscopy today but had to be canceled because he was not clear GoLytely prep in progress Exam Vital Signs Temp Pulse Resp BP Pulse Ox O2 Del Method O2 Flow Rate 97.0 F 54 L 18 92/50 L 96 Room Air 2 06/07/25 16:00 06/07/25 16:00 06/07/25 16:00 06/07/25 16:00 06/07/25 16:00 06/07/25 16:00 06/06/25 18:22 Objective Labs 06/07/25 04:44 06/07/25 15:28 Labs: Laboratory Results - last 24 hr 06/06/25 06/07/25 06/07/25 04:40 04:44 15:28 WBC 5.6 RBC 3.01 L Hgb 9.3 L Hct 28.0 L MCV 93 MCH 30.9 MCHC 33.2 RDW Std Deviation 56.5 H Plt Count 248 D Neut % (Auto) 52 Lymph % (Auto) 33 [place] % (Auto) 11 Eos % (Auto) 3 Baso % (Auto) 1 Neut # (Auto) 2.9 Lymph # (Auto) 1.8 [place] # (Auto) 0.6 Eos # (Auto) 0.2 Baso # (Auto) 0.0 Immature Gran # (Auto) 0.01 H Absolute Nucleated RBC 0.00 Immature Gran % 0 Nucleated RBC % 0 Sodium 143 142 Potassium 4.0 3.8 Chloride 111 H 107 Carbon Dioxide 24.7 29.7 Anion Gap 7 5 L BUN 10 10 Creatinine 0.5 L 0.5 L Estim Creat Clear Calc 97.4 97.4 eGFR > 60 > 60 BUN/Creatinine Ratio 20 20 Glucose 141 H 65 L D Calculated Osmolality 285 280 Calcium 8.4 7.8 L Corrected Calcium 9.0 Phosphorus 2.5 1.7 L Magnesium 1.7 Albumin 2.5 L D Hepatitis C Antibody Non Reactive Impressions Impression: Anemia blood loss Continue the GoLytely prep GoLytely can be mixed in the grape juice and patient can drink that for Assessment & Plan A&P Narrative # Hematemesis in the setting of chronic liver disease secondary to alcohol # Posthemorrhagic anemia plan Agree with octreotide infusion Agree with IV Protonix consent obtained for fiberoptic esophagogastroduodenoscopy with possible biopsy possible therapeutic intervention under intravenous moderate sedation Other medical problems include Diabetes mellitus type 2 Time Spent With Patient Time: Total time spent is greater than 50% in coordination of care (as documented) at patient's floor/unit and/or counseling patient:
[2025-06-07] MEDS: ASCORBIC ACID 250 MG TABLET 500 MG PO (20:20)
[2025-06-07] MEDS: MIDODRINE 5 MG TABLET 10 MG PO (21:24)
[2025-06-08] VITALS (21 sets, daily range): BP systolic 71–132; BP diastolic 33–68; PULSE 42–80; RESP 11–20; TEMP 36.1–36.4; O2SAT 93–99; BMI 17.4
[2025-06-08] MEDS: ACETAMINOPHEN 325 MG TABLET 650 MG PO (04:01)
[2025-06-08] MEDS: MIDODRINE 5 MG TABLET 10 MG PO ×3 (04:09→21:29)
[2025-06-08] MEDS: Magnesium Sulfate 2 GM Ivpb 2 GM/50 ML BAG IV (04:25)
[2025-06-08 05:28] LABS: Basophils # (Auto) 0.0 Thou/mm3 (0.0-0.2); Basophils % (Auto) 1 % (0-2.5); Eosinophils # (Auto) 0.1 Thou/mm3 (0.0-0.5); Eosinophils % (Auto) 2 % (0-10); Hematocrit 28.2 % (41.0-53.0); Hemoglobin 9.8 g/dL (13.5-16.0); Immature Granulocytes Auto 0.01 Thou/mm3 (0.00-0.00); Lymphocytes # (Auto) 1.9 Thou/mm3 (1.0-4.8); Lymphocytes % (Auto) 29 % (10-50); Mean Corpuscular HGB Conc 34.8 g/dl (31.0-37.0); Mean Corpuscular Hemoglobin 32.2 pg (25.0-35.0); Mean Corpuscular Volume 93 fL (80-100); Monocytes # (Auto) 0.6 Thou/mm3 (0.0-0.8); Monocytes % (Auto) 9 % (0-12); Neutrophils # (Auto) 3.9 Thou/mm3 (1.8-7.7); Neutrophils % (Auto) 60 % (37-80); Nucleated Red Blood Cell # 0.00 Thou/mm3 (0.00-0.00); Nucleated Red Blood Cell % 0 /100 WBC (0); Platelet Count 278 Thou/mm3 (140-440); RDW Standard Deviation 54.1 fL (35.1-43.9); Red Blood Count 3.04 Miln/mm3 (4.50-5.90); White Blood Count 6.5 Thou/mm3 (3.8-10.6)
[2025-06-08 05:59] LABS: Alanine Aminotransferase 17 U/L (10-49); Albumin, Serum 2.4 gm/dL (3.4-4.8); Albumin/Globulin Ratio 1.1 (1.2-2.2); Alkaline Phosphatase 62 U/L (46-116); Anion Gap 5 (7-16); Aspartate Amino Transferase 45 U/L (0-34); BUN/Creatinine Ratio 10 Ratio (12-20); Bilirubin,Total 0.4 mg/dL (0.3-1.2); Blood Urea Nitrogen < 5 mg/dL (9-23); Calcium 7.8 mg/dL (8.3-10.6); Calcium (Corrected) 9.1 mg/dL (8.5-10.1); Carbon Dioxide 31.5 mMol/L (20.0-31.0); Chloride 109 mMol/L (98-107); Creatinine (Component) 0.5 mg/dL (0.6-1.3); Estimated Creatinine Clearance 97.4 mL/min (>60); Globulin 2.2 gm/dL (2.3-3.5); Glucose 62 mg/dL (74-106); Magnesium 1.9 mg/dL (1.6-2.6); Osmolality,Calculated 283 (275-295); Phosphorous 1.4 mg/dL (2.4-5.1); Potassium 3.8 mMol/L (3.4-5.1); Sodium 145 mMol/L (136-145); Total Protein 4.6 gm/dL (5.7-8.2); eGFR > 60 See Note
[2025-06-08] MEDS: RINGERS LACTATED 1000 ML 1,000 ML 80 ML IV (08:40)
[2025-06-08] MEDS: POT PHOS 15 mMol in NS 250 ML 15 MMOL/250 ML BAG 62.5 MMOL IV ×2 (08:40→12:01)
[2025-06-08] MEDS: ZINC SULFATE 220 MG CAPSULE PO (08:41)
[2025-06-08] MEDS: THIAMINE INJ 100 MG/ML VIAL 2 ML IVP (08:41)
[2025-06-08] MEDS: MULTIVITAMINS TABLET 1 TAB PO (08:41)
[2025-06-08] MEDS: ASCORBIC ACID 250 MG TABLET 500 MG PO ×2 (08:41→20:32)
[2025-06-08] MEDS: ATORVASTATIN CALCIUM 20 MG TABLET 40 MG PO (08:41)
[2025-06-08] MEDS: cefTRIAXone/D5w 1gm IV premix 1 GM/50 ML BAG IV (08:41)
--- NOTE | 2025-06-08 08:41 | EKG_ITS ---
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
--- NOTE | 2025-06-08 10:30 | CHAP ---
Prayed with patient for his upcoming procedure.
--- NOTE | 2025-06-08 10:45 | ESPR_ITS ---
<Statement entered by Catherine Shoemaker MD - 06/13/25 12:11> I reviewed above note and agree with findings and plans. I have also personally examined the patient with medicine team and went over assessment and plan with medical team including internet marketing strategist and resident physician. <Statement entered by Marc Lay MD - 06/09/25 11:45> I saw and examined patient personally and supervised PGY 1 resident, Dr. Montoya with formulating a management plan. I agree with the documentation with the exceptions as listed below. Mr. Schwab is a 65 y/o male with PMH of EtOH use disorder, HLD, T2DM who presented to the ED on 06/05 with multiple episodes of hematemis over the past 24 hours. Problem list: 1. Acute blood loss anemia secondary to GI bleed for investigation ?resolving 2. Hypotension secondary to hypovolemia due to bowel prep? resolving 3. Decompensated alcoholic cirrhosis with grade 1 esophageal varices 4. Bradycardia 5. Grade 2 internal hemorrhoids 6. Protein calorie malnutrition 7. Chronic nicotine dependence 8. Asymptomatic bacteriuria 9. NIDDM type II 10. Hyperlipidemia 11. Alcohol use disorder 12. Pulmonary nodule Patient underwent EGD on 06/06/2025 which revealed grade 1 esophageal varices, esophageal ulcer and gastritis. Colonoscopy on 06/08/2025 showed grade 2 internal hemorrhoids and scattered nonbleeding diverticuli in sigmoid and descending colon. Octreotide was discontinued due to bradycardia. Patient continues to be on midodrine for blood pressure support. Cardiology, Dr. Shay was consulted for bradycardia. For patient's alcohol use disorder he continues to be on CIWA protocol. So far has not shown any signs of withdrawal. His 6 mm pulmonary nodule will be followed up with interval CT scan as outpatient. Plan of care discussed with Attending Dr. Sahara Lay MD PGY 2 Disclaimer: This note was dictated by speech recognition. Minor errors in city magistrate may be present due to voice recognition software. Documentation for date of: 06/08/25 Subjective Subjective Interval history: Patient examined bedside, labs reviewed. He was scheduled for a colonoscopy yesterday but had to be canceled because he was not clear. GoLytely prep in progress has had multiple clear bowel movements now. Plan for colonoscopy today. He denies any nausea, vomiting, pain, states he has no complaints. Exam Vital Signs Temp Pulse Resp BP Pulse Ox O2 Del Method O2 Flow Rate 97.3 F 46 L 11 L 82/49 L 93 L Room Air 2 06/08/25 08:00 06/08/25 08:00 06/08/25 08:00 06/08/25 08:00 06/08/25 08:00 06/08/25 08:00 06/06/25 18:22 Narrative Exam General: No acute distress, cachectic, able to respond to questions AOx2 (knows name, and location, unsure of date/year/who president is) Eye: PERRL, EOMI HENT: Normocephalic, atraumatic, normal hearing Neck: Supple, non-tender, no JVD, no lymphadenopathy Lungs: Clear to auscultation bilaterally, non-labored respirations, symmetric chest rise, no use of accessory muscles Heart: Normal S1 and S2, no S3 or S4 appreciated. Normal rate and regular rhythm, no murmurs, rubs gallops, or edema. Peripheral pulses intact bilaterally, capillary refill brisk distally Abdomen: Soft, non-tender, non-distended, normal bowel sounds. No guarding or rebound tenderness. Musculoskeletal: Normal range of motion and strength Skin: Skin is warm, dry, no rashes or lesions. Neurologic: No focal neurological deficits. Moving all extremities spontaneously Objective Labs 06/08/25 04:14 06/08/25 13:52 Labs: Laboratory Results - last 24 hr 06/07/25 06/08/25 15:28 04:14 WBC 6.5 RBC 3.04 L Hgb 9.8 L Hct 28.2 L MCV 93 MCH 32.2 MCHC 34.8 RDW Std Deviation 54.1 H Plt Count 278 D Neut % (Auto) 60 Lymph % (Auto) 29 [place] % (Auto) 9 Eos % (Auto) 2 Baso % (Auto) 1 Neut # (Auto) 3.9 Lymph # (Auto) 1.9 [place] # (Auto) 0.6 Eos # (Auto) 0.1 Baso # (Auto) 0.0 Immature Gran # (Auto) 0.01 H Absolute Nucleated RBC 0.00 Immature Gran % 0 Nucleated RBC % 0 Sodium 142 145 Potassium 3.8 3.8 Chloride 107 109 H Carbon Dioxide 29.7 31.5 H Anion Gap 5 L 5 L BUN 10 < 5 L Creatinine 0.5 L 0.5 L Estim Creat Clear Calc 97.4 97.4 eGFR > 60 > 60 BUN/Creatinine Ratio 20 10 L Glucose 65 L D 62 L Calculated Osmolality 280 283 Calcium 7.8 L 7.8 L Corrected Calcium 9.0 9.1 Phosphorus 1.7 L 1.4 L Magnesium 1.9 Total Bilirubin 0.4 AST 45 H ALT 17 Alkaline Phosphatase 62 Total Protein 4.6 L Albumin 2.5 L D 2.4 L Globulin 2.2 L Albumin/Globulin Ratio 1.1 L Quality Measures Quality Measures none Advance care planning discussed with:: other Assessment & Plan Assessment Current Active Medications: Generic Name Dose Route Start Last Admin Trade Name Freq PRN Reason Stop Dose Admin Acetaminophen 650 mg 06/08/25 08:25 Acetaminophen 325 Mg Tablet PO 07/06/25 03:19 Q6H PRN Fever >100.4 or pain 1-3 Ascorbic Acid 500 mg 06/07/25 21:00 06/08/25 08:41 Ascorbic Acid 250 Mg Tablet PO 07/07/25 20:59 500 mg BID MANUEL Administration Atorvastatin Calcium 40 mg 06/07/25 09:00 06/08/25 08:41 Atorvastatin Calcium 20 Mg Tablet PO 07/07/25 08:59 40 mg QDAY MANUEL Administration Dextrose 25 ml 06/06/25 06:22 Dextrose 50%-Water Inj 50 Ml Syringe IV 07/06/25 06:21 Q15MIN PRN BG 50-70 responsive npo pt Dextrose 50 ml 06/06/25 06:22 Dextrose 50%-Water Inj 50 Ml Syringe IV 07/06/25 06:21 Q15MIN PRN BG <50 OR BG <70 & pt unresponsive Diazepam 2.5 mg 06/06/25 07:53 Diazepam Inj 5 Mg/Ml Vial 2 Ml IVP 06/11/25 07:52 Q2HR PRN CIWA SCORE 8-13 Diazepam 5 mg 06/06/25 07:53 Diazepam Inj 5 Mg/Ml Vial 2 Ml IVP 06/11/25 07:52 Q2HR PRN CIWA SCORE 14-19 Diazepam 10 mg 06/06/25 07:53 Diazepam Inj 5 Mg/Ml Vial 2 Ml IVP 06/11/25 07:52 Q2HR PRN CIWA SCORE 20-25 Diazepam 10 mg 06/06/25 07:53 Diazepam Inj 5 Mg/Ml Vial 2 Ml IVP X1 PRN Breakthrough Agitation Glucagon 1 mg 06/06/25 06:22 Glucagon Inj 1 Mg Vial IM Q15MIN PRN BG <70, and no IV access Ceftriaxone Sodium/Dextrose 1 gm in 50 mls @ 100 mls/hr 06/06/25 04:05 06/08/25 08:41 Rocephin/D5w 1gm Iv Premix IV 06/13/25 04:04 100 mls/hr QDAY MANUEL Administration Potassium Phosphate 15 mmol in 250 mls @ 62.5 mls/hr 06/08/25 08:14 06/08/25 08:40 Pot Phos 15 Mmol In Ns 250 Ml IV 06/08/25 16:13 62.5 mls/hr Q4H MANUEL Administration Lactated Ringer's 1,000 mls @ 80 mls/hr 06/08/25 08:30 06/08/25 08:40 Lactated Ringers IV 06/08/25 20:59 80 mls/hr .[id number] ONE Administration Insulin Human Lispro 0 unit 06/07/25 16:41 06/08/25 05:23 Insulin Lispro (Admelog) 1 Unit/0.01 Ml Unit SC 07/06/25 06:29 Not Given Q6HR MANUEL Protocol Midodrine 10 mg 06/07/25 22:00 06/08/25 04:09 Midodrine 5 Mg Tablet PO 07/07/25 21:59 10 mg TID MANUEL Administration Multivitamins 1 tab 06/08/25 09:00 06/08/25 08:41 Multivitamins Tablet PO 07/08/25 08:59 1 tab QDAY MANUEL Administration Ondansetron HCl 4 mg 06/06/25 03:20 Ondansetron Inj 2 Mg/Ml Inj 2 Ml IVP 07/06/25 03:19 Q6H PRN NAUSEA OR VOMITING Protocol Pantoprazole Sodium 40 mg 06/06/25 09:00 06/08/25 08:41 Pantoprazole Inj 40 Mg Vial IVP 07/06/25 08:59 40 mg BID MANUEL Administration (Empagliflozin- 1 ea 06/07/25 09:00 06/07/25 08:18 Metformin [Synjardy] PO 07/07/25 08:59 Not Given 5-1,000 Mg Tablet QDAY MANUEL On Hold: 06/07/25 19:19 Sennosides 1 tab 06/06/25 03:55 06/07/25 07:53 Senna/Docusate Sod 1 Tab Tablet PO 07/06/25 03:54 1 tab QDAY PRN Administration CONSTIPATION Protocol Thiamine HCl 100 mg 06/06/25 09:00 06/08/25 08:41 Thiamine Inj 100 Mg/Ml Vial 2 Ml IVP 07/06/25 08:59 100 mg QDAY MANUEL Administration Zinc Sulfate 220 mg 06/07/25 14:00 06/08/25 08:41 Zinc Sulfate 220 Mg Capsule PO 07/07/25 13:59 220 mg QDAY MANUEL Administration Plan Mr. Schwab is a 65 y/o male with PMH of EtOH use disorder, HLD, T2DM who presented to the ED on 06/05 with multiple episodes of hematemis i/s/o EtOH and NSAID use. Admitted for upper GI bleed. EGD: G1 esophageal varices and erythematous gastric mucosa. Plan for colonoscopy tonight. #Acute blood loss anemia most likely 2/2 esophageal varices - resolved #Normocytic normochromic anemia (due to acute blood loss) #Colonoscopy r/o Multiple episodes of hematemesis i/s/o daily EtOH and NSAID use. Initial HR 50s- 70s, BP 100s / 50-60s. FOBT positive. Started octreotide, pantoprazole IV, IVF in ED. Liver US: absent gallbladder, normal CBD, primary hepatocellular dz vs cirrhosis, no focal liver lesions. 2 units of pRBCs given overnight Hgb now 9.7. Plan: - Octreotide 50 mcg/hr IV - DC'd due to hypotension - Pantroprazole 40 mg IV BID - Ceftriaxone 1g IV daily for esophageal varices prophylaxis 06/05 - - GI consulted, recs appreciated - Colonoscopy today. #Decompensated Liver Dz 2/2 #Alcohol use disorder #Acute encephalopathy - resolving i/s/o hypotension 2/2 upper GI bleed. 2L IVF given in ED. Patient is AOx2, unable to assess his baseline at the moment will discuss with family. Is alert and awake, able to make comprehensive responses. Plan: - Continue 2nd liter IVF, reassess volume status and mental status - Midodrine for low blood pressures #Hypotension - most likely iatrogenic - resolved Patient receiving octreotide. Plan: -Midodrine PRN #Cachexia #Hx of smoking BMI 17. Very thin man. History of smoking adn weight loss in recent years. Concern for malignancy. CTCAP with con: 6 mm pulmonary nodule right lower lobe. Plan: -6 month follow-up CT chest without contrast #Constipation - resovled Patient not having bowel movements for multiple days and even today despite drinking Golytely. KUB shows abundant stool throughout colon. Plan -Enema x1 -Senna/docusate #Asymptomatic bacteriuria Denies urinary sx. Cx came back klebsiella positive hernandez sensitive. Afebrile, UA 3+ glucose, +LE, WBC 38, 4+ bacteria Plan: - Ceftriaxone 1g IV daily - 06/05- #T2DM Home med: Metformin (pending med rec for dose). A1C: 5.7. Plan: - Carb consistent diet - SSI Step 2 #Hyperlipidemia Not currently on any statins. Lipid panel: triglycerides 132, cholesterol 85, LDL 41 HDL 18 Plan: -Atorvastatin 40mg PO QD #Polysubstance use #EtOH use disorder #CIWA #Tobacco use disorder Plan: - Forming Mill Operator pt on cessation - CIWA protocol initiated - DC'd #Constipation - resolved Pt has been constipated for the past few days Plan: - Doc/senna PRN when appropriate Checklist Dispo: Admit to tele, pending GI recs Diet: NPO Bowel Reg: doc/senna PRN when appropriate VTE ppx: SCD GI ppx: Pantoprazole 40 mg IV BID Pain mgmt: Tylenol PRN Code status: full Plan discussed and patient examined with supervising resident Dr. Lay and attending Dr. Sahara Montoya MD PGY1
[2025-06-08] MEDS: INSULIN LISPRO (AdmeLOG) 1 UNIT/0.01 ML UNIT SC ×2 (11:53→23:56)
--- NOTE | 2025-06-08 14:27 | PC.SS ---
SS follow up note; Patient is pending colonoscopy. Patient will discharge home when medically cleared.
[2025-06-08 14:30] LABS: Albumin, Serum 2.6 gm/dL (3.4-4.8); Anion Gap 7 (7-16); BUN/Creatinine Ratio 10 Ratio (12-20); Blood Urea Nitrogen 5 mg/dL (9-23); Calcium 8.1 mg/dL (8.3-10.6); Calcium (Corrected) 9.2 mg/dL (8.5-10.1); Carbon Dioxide 30.6 mMol/L (20.0-31.0); Chloride 106 mMol/L (98-107); Creatinine (Component) 0.5 mg/dL (0.6-1.3); Estimated Creatinine Clearance 97.4 mL/min (>60); Glucose 133 mg/dL (74-106); Osmolality,Calculated 286 (275-295); Phosphorous 3.4 mg/dL (2.4-5.1); Potassium 4.2 mMol/L (3.4-5.1); Sodium 144 mMol/L (136-145); eGFR > 60 See Note
--- NOTE | 2025-06-08 19:48 | SUR.OPER ---
MADE AWARE OF HYPOTENSION AND BRADYCARDIA, NO NEW ORDERS RECEIVED.
[2025-06-09] VITALS (10 sets, daily range): BP systolic 92–115; BP diastolic 36–63; PULSE 37–75; RESP 13–19; TEMP 36.1–36.8; O2SAT 92–98; BMI 19.6
[2025-06-09] MEDS: RINGERS LACTATED 1000 ML 1,000 ML 500 ML IV (00:42)
[2025-06-09] MEDS: MIDODRINE 5 MG TABLET 10 MG PO ×3 (05:20→21:35)
[2025-06-09] MEDS: DEXTROSE 50%-WATER INJ 50 ML SYRINGE IV (05:29)
[2025-06-09 05:57] LABS: Basophils # (Auto) 0.0 Thou/mm3 (0.0-0.2); Basophils % (Auto) 1 % (0-2.5); Eosinophils # (Auto) 0.2 Thou/mm3 (0.0-0.5); Eosinophils % (Auto) 3 % (0-10); Hematocrit 27.0 % (41.0-53.0); Hemoglobin 8.9 g/dL (13.5-16.0); Immature Granulocytes Auto 0.02 Thou/mm3 (0.00-0.00); Lymphocytes # (Auto) 2.7 Thou/mm3 (1.0-4.8); Lymphocytes % (Auto) 33 % (10-50); Mean Corpuscular HGB Conc 33.0 g/dl (31.0-37.0); Mean Corpuscular Hemoglobin 31.2 pg (25.0-35.0); Mean Corpuscular Volume 95 fL (80-100); Monocytes # (Auto) 0.7 Thou/mm3 (0.0-0.8); Monocytes % (Auto) 9 % (0-12); Neutrophils # (Auto) 4.5 Thou/mm3 (1.8-7.7); Neutrophils % (Auto) 56 % (37-80); Nucleated Red Blood Cell # 0.00 Thou/mm3 (0.00-0.00); Nucleated Red Blood Cell % 0 /100 WBC (0); Platelet Count 269 Thou/mm3 (140-440); RDW Standard Deviation 53.3 fL (35.1-43.9); Red Blood Count 2.85 Miln/mm3 (4.50-5.90); White Blood Count 8.1 Thou/mm3 (3.8-10.6)
[2025-06-09 06:35] LABS: Alanine Aminotransferase 10 U/L (10-49); Albumin, Serum 2.2 gm/dL (3.4-4.8); Albumin/Globulin Ratio 1.2 (1.2-2.2); Alkaline Phosphatase 61 U/L (46-116); Anion Gap 4 (7-16); Aspartate Amino Transferase 32 U/L (0-34); BUN/Creatinine Ratio 10 Ratio (12-20); Bilirubin,Total 0.2 mg/dL (0.3-1.2); Blood Urea Nitrogen < 5 mg/dL (9-23); Calcium 7.7 mg/dL (8.3-10.6); Calcium (Corrected) 9.1 mg/dL (8.5-10.1); Carbon Dioxide 31.1 mMol/L (20.0-31.0); Chloride 107 mMol/L (98-107); Creatinine (Component) 0.5 mg/dL (0.6-1.3); Estimated Creatinine Clearance 110.0 mL/min (>60); Globulin 1.9 gm/dL (2.3-3.5); Magnesium 1.9 mg/dL (1.6-2.6); Osmolality,Calculated 277 (275-295); Phosphorous 2.2 mg/dL (2.4-5.1); Potassium 3.9 mMol/L (3.4-5.1); Sodium 142 mMol/L (136-145); Total Protein 4.1 gm/dL (5.7-8.2); eGFR > 60 See Note
[2025-06-09 06:38] LABS: Glucose 44 mg/dL (74-106)
--- NOTE | 2025-06-09 08:27 | CHAP ---
Patient was visited by a Spiritual Care Volunteer on 06/08/2025 between 0855 and 1200 and received comfort, encouragement and/or prayer.
[2025-06-09] MEDS: cefTRIAXone/D5w 1gm IV premix 1 GM/50 ML BAG IV (08:31)
[2025-06-09] MEDS: RINGERS LACTATED 1000 ML 1,000 ML 999 ML IV (08:31)
[2025-06-09] MEDS: ATORVASTATIN CALCIUM 20 MG TABLET 40 MG PO (08:31)
[2025-06-09] MEDS: ACETAMINOPHEN 325 MG TABLET 650 MG PO (08:32)
[2025-06-09] MEDS: ASCORBIC ACID 250 MG TABLET 500 MG PO ×2 (08:32→21:34)
[2025-06-09] MEDS: THIAMINE INJ 100 MG/ML VIAL 2 ML IVP (08:32)
[2025-06-09] MEDS: ZINC SULFATE 220 MG CAPSULE PO (08:32)
[2025-06-09] MEDS: MULTIVITAMINS TABLET 1 TAB PO (08:32)
--- NOTE | 2025-06-09 10:15 | PC.SS ---
SS follow up note; Possible discharge home today.
[2025-06-09 11:23] LABS: Lactate (Lactic Acid) 2.0 mMol/L (0.4-2.0)
[2025-06-09] MEDS: INSULIN LISPRO (AdmeLOG) 1 UNIT/0.01 ML UNIT SC ×2 (11:33→17:30)
[2025-06-09 11:43] LABS: Ammonia 16 uMol/L (11-32)
--- NOTE | 2025-06-09 13:20 | ESPR_ITS ---
<Statement entered by Catherine Shoemaker MD - 06/13/25 12:13> I reviewed above note and agree with findings and plans. I have also personally examined the patient with medicine team and went over assessment and plan with medical team including software intern and resident physician. <Statement entered by Marc Lay MD - 06/09/25 18:29> I saw and examined patient personally and supervised PGY 1 resident, Dr. Montoya with formulating a management plan. I agree with the documentation with the exceptions as listed below. Mr. Schwab is a 65 y/o male with PMH of EtOH use disorder, HLD, T2DM who presented to the ED on 06/05 with multiple episodes of hematemis over the past 24 hours. Problem list: 1. Acute blood loss anemia secondary to GI bleed for investigation ?resolving 2. Hypotension secondary to hypovolemia due to bowel prep? resolving 3. Decompensated alcoholic cirrhosis with grade 1 esophageal varices 4. Bradycardia 5. Grade 2 internal hemorrhoids 6. Protein calorie malnutrition 7. Chronic nicotine dependence 8. Asymptomatic bacteriuria 9. NIDDM type II 10. Hyperlipidemia 11. Alcohol use disorder 12. Pulmonary nodule Patient underwent EGD on 06/06/2025 which revealed grade 1 esophageal varices, esophageal ulcer and gastritis. Colonoscopy on 06/08/2025 showed grade 2 internal hemorrhoids and scattered nonbleeding diverticuli in sigmoid and descending colon. Octreotide was discontinued due to bradycardia. Patient continues to be on midodrine for blood pressure support. Patient continues to be bradycardic and Cardiology, Dr. Shay was consulted. For patient's alcohol use disorder he continues to be on CIWA protocol. So far has not shown any signs of withdrawal. His 6 mm pulmonary nodule will be followed up with interval CT scan as outpatient. Plan of care discussed with Attending Dr. Sahara Lay MD PGY 2 Disclaimer: This note was dictated by speech recognition. Minor errors in manager emergency department may be present due to voice recognition software. Documentation for date of: 06/09/25 Subjective Subjective Interval history: Patient examined bedside, labs reviewed. Colonoscopy revealed internal hemorrhoids, moderate diverticulosis in the sigmoid colon and in the descending colon. There was no evidence of diverticular bleeding. He denies any nausea, vomiting, pain, states he has no complaints. His pressures are still soft and heart rate is low, pending cardiac clearance with Dr. Cleveland prior to discharge. Exam Vital Signs Temp Pulse Resp BP Pulse Ox O2 Del Method O2 Flow Rate 96.9 F 45 L 19 115/60 98 Room Air 3 06/09/25 12:00 06/09/25 12:00 06/09/25 12:00 06/09/25 12:00 06/09/25 12:00 06/09/25 12:00 06/08/25 19:55 Narrative Exam General: No acute distress, cachectic, able to respond to questions AOx2 (knows name, and location, unsure of date/year/who president is) Eye: PERRL, EOMI HENT: Normocephalic, atraumatic, normal hearing Neck: Supple, non-tender, no JVD, no lymphadenopathy Lungs: Clear to auscultation bilaterally, non-labored respirations, symmetric chest rise, no use of accessory muscles Heart: Normal S1 and S2, no S3 or S4 appreciated. Normal rate and regular rhythm, no murmurs, rubs gallops, or edema. Peripheral pulses intact bilaterally, capillary refill brisk distally Abdomen: Soft, non-tender, non-distended, normal bowel sounds. No guarding or rebound tenderness. Musculoskeletal: Normal range of motion and strength Skin: Skin is warm, dry, no rashes or lesions. Neurologic: No focal neurological deficits. Moving all extremities spontaneously Objective Labs 06/09/25 05:23 06/09/25 05:23 Labs: Laboratory Results - last 24 hr 06/08/25 06/09/25 06/09/25 13:52 05:23 11:05 WBC 8.1 RBC 2.85 L Hgb 8.9 L Hct 27.0 L MCV 95 MCH 31.2 MCHC 33.0 RDW Std Deviation 53.3 H Plt Count 269 Neut % (Auto) 56 Lymph % (Auto) 33 [place] % (Auto) 9 Eos % (Auto) 3 Baso % (Auto) 1 Neut # (Auto) 4.5 Lymph # (Auto) 2.7 [place] # (Auto) 0.7 Eos # (Auto) 0.2 Baso # (Auto) 0.0 Immature Gran # (Auto) 0.02 H Absolute Nucleated RBC 0.00 Immature Gran % 0 Nucleated RBC % 0 Sodium 144 142 Potassium 4.2 3.9 Chloride 106 107 Carbon Dioxide 30.6 31.1 H Anion Gap 7 4 L BUN 5 L < 5 L Creatinine 0.5 L 0.5 L Estim Creat Clear Calc 97.4 110.0 eGFR > 60 > 60 BUN/Creatinine Ratio 10 L 10 L Glucose 133 H D 44 L* D Calculated Osmolality 286 277 Lactic Acid 2.0 Calcium 8.1 L 7.7 L Corrected Calcium 9.2 9.1 Phosphorus 3.4 2.2 L Magnesium 1.9 Total Bilirubin 0.2 L AST 32 ALT 10 Alkaline Phosphatase 61 Ammonia 16 Total Protein 4.1 L Albumin 2.6 L 2.2 L Globulin 1.9 L Albumin/Globulin Ratio 1.2 Quality Measures Quality Measures none Advance care planning discussed with:: other Assessment & Plan Assessment Current Active Medications: Generic Name Dose Route Start Last Admin Trade Name Freq PRN Reason Stop Dose Admin Acetaminophen 650 mg 06/08/25 08:25 06/09/25 08:32 Acetaminophen 325 Mg Tablet PO 07/06/25 03:19 650 mg Q6H PRN Administration Fever >100.4 or pain 1-3 Ascorbic Acid 500 mg 06/07/25 21:00 06/09/25 08:32 Ascorbic Acid 250 Mg Tablet PO 07/07/25 20:59 500 mg BID MANUEL Administration Atorvastatin Calcium 40 mg 06/07/25 09:00 06/09/25 08:31 Atorvastatin Calcium 20 Mg Tablet PO 07/07/25 08:59 40 mg QDAY MANUEL Administration Atropine Sulfate 1 mg 06/08/25 13:03 Atropine Sulf Inj 0.1 Mg/Ml Syr 10 Ml IV PRN PRN BRADYCARDIA Dextrose 25 ml 06/06/25 06:22 Dextrose 50%-Water Inj 50 Ml Syringe IV 07/06/25 06:21 Q15MIN PRN BG 50-70 responsive npo pt Dextrose 50 ml 06/06/25 06:22 06/09/25 05:29 Dextrose 50%-Water Inj 50 Ml Syringe IV 07/06/25 06:21 50 ml Q15MIN PRN Administration BG <50 OR BG <70 & pt unresponsive Glucagon 1 mg 06/06/25 06:22 Glucagon Inj 1 Mg Vial IM Q15MIN PRN BG <70, and no IV access Ceftriaxone Sodium/Dextrose 1 gm in 50 mls @ 100 mls/hr 06/06/25 04:05 06/09/25 08:31 Rocephin/D5w 1gm Iv Premix IV 06/13/25 04:04 100 mls/hr QDAY MANUEL Administration Insulin Human Lispro 0 unit 06/09/25 11:30 06/09/25 11:33 Insulin Lispro (Admelog) 1 Unit/0.01 Ml Unit SC 07/09/25 11:29 2 unit ACHS MANUEL Administration Protocol Midodrine 10 mg 06/09/25 14:00 Midodrine 5 Mg Tablet PO 07/09/25 13:59 TID MANUEL Multivitamins 1 tab 06/08/25 09:00 06/09/25 08:32 Multivitamins Tablet PO 07/08/25 08:59 1 tab QDAY MANUEL Administration Ondansetron HCl 4 mg 06/06/25 03:20 Ondansetron Inj 2 Mg/Ml Inj 2 Ml IVP 07/06/25 03:19 Q6H PRN NAUSEA OR VOMITING Protocol Pantoprazole Sodium 40 mg 06/06/25 09:00 06/09/25 08:33 Pantoprazole Inj 40 Mg Vial IVP 07/06/25 08:59 40 mg BID MANUEL Administration (Empagliflozin- 1 ea 06/07/25 09:00 06/07/25 08:18 Metformin [Synjardy] PO 07/07/25 08:59 Not Given 5-1,000 Mg Tablet QDAY MANUEL On Hold: 06/07/25 19:19 Sennosides 1 tab 06/06/25 03:55 06/07/25 07:53 Senna/Docusate Sod 1 Tab Tablet PO 07/06/25 03:54 1 tab QDAY PRN Administration CONSTIPATION Protocol Thiamine HCl 100 mg 06/06/25 09:00 06/09/25 08:32 Thiamine Inj 100 Mg/Ml Vial 2 Ml IVP 07/06/25 08:59 100 mg QDAY MANUEL Administration Zinc Sulfate 220 mg 06/07/25 14:00 06/09/25 08:32 Zinc Sulfate 220 Mg Capsule PO 07/07/25 13:59 220 mg QDAY MANUEL Administration Plan Mr. Schwab is a 65 y/o male with PMH of EtOH use disorder, HLD, T2DM who presented to the ED on 06/05 with multiple episodes of hematemis i/s/o EtOH and NSAID use. Admitted for upper GI bleed. EGD: G1 esophageal varices and erythematous gastric mucosa. Colonoscopy revealed internal hemorrhoids, moderate diverticulosis in the sigmoid colon and in the descending colon. Pending cardiac clearance for bradycardia and soft blood pressures prior to discharge. #Acute blood loss anemia 2/2 esophageal varices - resolved #Normocytic normochromic anemia (due to acute blood loss) #Colonoscopy r/o Multiple episodes of hematemesis i/s/o daily EtOH and NSAID use. Initial HR 50s- 70s, BP 100s / 50-60s. FOBT positive. Started octreotide, pantoprazole IV, IVF in ED. Liver US: absent gallbladder, normal CBD, primary hepatocellular dz vs cirrhosis, no focal liver lesions. 2 units of pRBCs given overnight Hgb now 9.7. hemoglobin has been stable. Colonoscopy revealed internal hemorrhoids, moderate diverticulosis in the sigmoid colon and in the descending colon. Plan: - Octreotide 50 mcg/hr IV - DC'd due to hypotension - Pantroprazole 40 mg IV BID - Ceftriaxone 1g IV daily for esophageal varices prophylaxis 06/05 - #Sinus bradycardia HR: 50s, at times dips to the 30s overnight. Plan: -Cards consulted pending recs #Decompensated Liver Dz 2/2 #Alcohol use disorder #Acute encephalopathy - resolving i/s/o hypotension 2/2 upper GI bleed. 2L IVF given in ED. Patient is AOx2, unable to assess his baseline at the moment will discuss with family. Is alert and awake, able to make comprehensive responses. Normal ammonia and lactate levels (06/09). Plan: - Continue 2nd liter IVF, reassess volume status and mental status - Midodrine for low blood pressures - 100g IV albumin 06/09 #Hypotension - most likely iatrogenic - resolving Patient receiving octreotide. Plan: -Midodrine PRN #Cachexia #Hx of smoking BMI 17. Very thin man. History of smoking adn weight loss in recent years. Concern for malignancy. CTCAP with con: 6 mm pulmonary nodule right lower lobe. Plan: -6 month follow-up CT chest without contrast #Constipation - resovled Patient not having bowel movements for multiple days and even today despite drinking Golytely. KUB shows abundant stool throughout colon. Plan -Enema x1 -Senna/docusate #Asymptomatic bacteriuria Denies urinary sx. Cx came back klebsiella positive hernandez sensitive. Afebrile, UA 3+ glucose, +LE, WBC 38, 4+ bacteria Plan: - Ceftriaxone 1g IV daily - 06/05- #T2DM Home med: Metformin (pending med rec for dose). A1C: 5.7. Plan: - Carb consistent diet - SSI Step 2 #Hyperlipidemia Not currently on any statins. Lipid panel: triglycerides 132, cholesterol 85, LDL 41 HDL 18 Plan: -Atorvastatin 40mg PO QD #Polysubstance use #EtOH use disorder #CIWA #Tobacco use disorder Plan: - Process Development Associate pt on cessation - CIWA protocol initiated - DC'd #Constipation - resolved Pt has been constipated for the past few days Plan: - Doc/senna PRN when appropriate Checklist Dispo: Admit to tele, pending GI recs Diet: CLD Bowel Reg: doc/senna PRN when appropriate VTE ppx: SCD GI ppx: Pantoprazole 40 mg IV BID Pain mgmt: Tylenol PRN Code status: full Plan discussed and patient examined with supervising resident Dr. Lay and attending Dr. Sahara Montoya MD PGY1
[2025-06-09] MEDS: ALBUMIN HUMAN-KJDA 25% IVPB 25 GM/100 ML BTL IV ×4 (14:55→18:06)
--- NOTE | 2025-06-09 15:56 | PD.IMCONS ---
HPI Data of Consult Requesting Physician: Catherine Shoemaker MD Primary Care Provider: Giovanni Lutz PA-C Consult Narrative History of present illness: This is a 65 y/o male with PMH of EtOH use disorder, HLD, T2DM who presented to the ED on 06/05 with multiple episodes of hematemis pt had EGD and BP low cardiology consulted pt denies chest pain BP 103/50 EKG bradycardia 39 but imporved: no acute ischemic changes cc:: cc: Catherine Shoemaker MD Meds Home Medications and Allergies Home Medications ?Medication ?Instructions ?Recorded ?Confirmed ?Type atorvastatin 40 mg tablet 40 mg PO QDAY 06/06/25 06/06/25 History empagliflozin 5 mg-metformin 1,000 1 tab PO QDAY 06/06/25 06/06/25 History mg tablet (Synjardy) Allergies Allergy/AdvReac Type Severity Reaction Status Date / Time No Known Allergies Allergy Verified 03/09/25 21:14 Exam Vital Signs Temp Pulse Resp BP Pulse Ox O2 Del Method O2 Flow Rate 96.9 F 56 L 19 109/36 L 98 Room Air 3 06/09/25 12:00 06/09/25 14:39 06/09/25 12:00 06/09/25 14:39 06/09/25 12:00 06/09/25 12:00 06/08/25 19:55 Routine HEENT Exam Head: Present normocephalic and atraumatic Eye: Present EOMI and PERRL ENT: Present mucous membranes moist Routine Neck Exam Neck: Present supple and trachea midline Routine Respiratory Exam Respiratory: Present chest non-tender, lungs clear, normal breath sounds and no resp distress Routine Cardiovascular Exam Cardiovascular: Present RRR Routine Abdominal Exam Abdominal: Present soft and normoactive bowel sounds Routine Extremities Exam Extremities: Present full ROM Routine Skin Exam Skin: Present intact, dry and warm Routine Neurological Exam Neurological: Present alert, oriented X3 and CN II-XII intact Routine Psychiatric Exam Psychiatric: Present normal affect and normal thought process Results Labs 06/09/25 05:23 06/09/25 05:23 Labs: Short CBC 06/09/25 Range/Units 05:23 WBC 8.1 (3.8-10.6) Thou/mm3 Hgb 8.9 L (13.5-16.0) g/dL Hct 27.0 L (41.0-53.0) % Plt Count 269 (140-440) Thou/mm3 BMP 06/09/25 05:23 Sodium 142 Potassium 3.9 Chloride 107 Carbon Dioxide 31.1 H BUN < 5 L Creatinine 0.5 L Glucose 44 L* D Calcium 7.7 L Liver Function 06/09/25 Range/Units 05:23 Total Bilirubin 0.2 L (0.3-1.2) mg/dL AST 32 (0-34) U/L ALT 10 (10-49) U/L Alkaline Phosphatase 61 (46-116) U/L Albumin 2.2 L (3.4-4.8) gm/dL Assessment and Plan Assessment and plan (1) GI bleed: Status: Acute (2) Hypotension: Status: Acute (3) Diabetes 1.5, managed as type 2: Status: Acute Additional Assessment & Plan Additional Plan: contiue IV fluids echo recommended bradycardia noted monitor for now
--- NOTE | 2025-06-09 16:40 | ECHO_ITS ---
Transthoracic Echo Report Ht (in): 64 Wt (lb): 118 Exam Location: 279 Status: Inpatient Uranium Processing Supervisor: Gemma Connor Indications: Procedure Performed: BP: 86 / 49 HR: 41 MEASUREMENTS (Male / Female) Normal Values 2D ECHO LV Diastolic Diameter PLAX 4.1 cm 4.2 - 5.9 / 3.9 - 5.3 cm LV Systolic Diameter PLAX 2.5 cm IVS Diastolic Thickness 0.6 cm 0.6 - 1.0 / 0.6 - 0.9 cm LVPW Diastolic Thickness 1.0 cm 0.6 - 1.0 / 0.6 - 0.9 cm LV Relative Wall Thickness 0.4 LVOT Diameter 1.9 cm LA Volume Index 31.3 cm???/m??? 16 - 28 cm???/m??? Ascending Aorta Diameter 2.7 cm M-MODE AV Cusp Separation MM 1.0 cm DOPPLER AV Peak Velocity 172.0 cm/s AV Peak Gradient 11.8 mmHg AV Mean Gradient 6.0 mmHg AV Velocity Time Integral 43.0 cm LVOT Peak Velocity 96.8 cm/s LVOT Peak Gradient 3.7 mmHg LVOT Velocity Time Integral 23.1 cm LVOT Cardiac Index 1729.7 cm???/min???m??? AV Area Cont Eq vti 1.5 cm??? AV Area Cont Eq pk 1.6 cm??? MV Area PHT 6.3 cm??? Mitral E Point Velocity 111.0 cm/s Mitral A Point Velocity 73.7 cm/s Mitral E to A Ratio 1.5 TR Peak Velocity 153.7 cm/s TR Peak Gradient 9.4 mmHg PV Peak Velocity 70.6 cm/s PV Peak Gradient 2.0 mmHg FINDINGS Left Ventricle Normal left ventricular size, wall thickness, systolic function with no obvious regional wall motion abnormalities. Normal left ventricular diastolic filling pattern for age. The ejection fraction is visually estimated at 60-65 %. Right Ventricle The right ventricle is mildly dilated and systolic function normal Left Atrium The left atrial cavity size is moderately increased. Right Atrium The right atrium is normal by two-dimensional imaging, color flow and Doppler imaging with no structural abnormalities, no thrombus formation present. Atrial Septum The interatrial septum appears normal with no evidence of a shunt. Aorta The aorta is normal by two-dimensional, color flow and Doppler interrogation. Mitral Valve The mitral valve is normal by two-dimensional, color flow and Doppler interrogation.trace mitral regurgitation. Aortic Valve Aortic valve sclerosis without stenosis. Tricuspid Valve The tricuspid valve is normal by two-dimensional, color flow and Doppler interrogation. There is trace tricuspid valve regurgitation. Pulmonic Valve The pulmonic valve is not well visualized. There is no significant pulmonic valve regurgitation. Vessels The pulmonary artery appears normal. The inferior vena cava mildly dilated measuring 2.3cm Pericardium The pericardium is normal by two-dimensional imaging. There is no significant pericardial effusion. Other Findings Pleural effusion present CONCLUSIONS Indication: Assess EF, wall motion and valvular abnormalities Normal left ventricular size and function. Approximate ejection fraction is 60- 65%. Mild dilated RV and normal function. Moderately dilated LA Aortic valve sclerosis without stenosis. Trace mitral and trace tricuspid regurgitation noted. The inferior vena cava mildly dilated measuring 2.3cm Leonor Shay (Electronically Signed) Final Date: 30 June 2025 09:16
--- NOTE | 2025-06-09 20:51 | PD.IMPROG ---
Documentation for date of: 06/09/25 Subjective Subjective Interval history: Hemoglobin hematocrit 8.9 and 27.0 downtrending Colonoscopy showed 2+ internal hemorrhoids diverticulosis otherwise normal colonoscopy to cecum Upper endoscopy showed 1 per esophageal varices gastritis no evidence of any acute GI bleed Exam Vital Signs Temp Pulse Resp BP Pulse Ox O2 Del Method O2 Flow Rate 97.5 F 75 17 106/63 93 L Room Air 3 06/09/25 20:00 06/09/25 20:00 06/09/25 20:00 06/09/25 20:00 06/09/25 20:00 06/09/25 20:00 06/08/25 19:55 Objective Labs 06/09/25 05:23 06/09/25 05:23 Labs: Laboratory Results - last 24 hr 06/09/25 06/09/25 05:23 11:05 WBC 8.1 RBC 2.85 L Hgb 8.9 L Hct 27.0 L MCV 95 MCH 31.2 MCHC 33.0 RDW Std Deviation 53.3 H Plt Count 269 Neut % (Auto) 56 Lymph % (Auto) 33 [place] % (Auto) 9 Eos % (Auto) 3 Baso % (Auto) 1 Neut # (Auto) 4.5 Lymph # (Auto) 2.7 [place] # (Auto) 0.7 Eos # (Auto) 0.2 Baso # (Auto) 0.0 Immature Gran # (Auto) 0.02 H Absolute Nucleated RBC 0.00 Immature Gran % 0 Nucleated RBC % 0 Sodium 142 Potassium 3.9 Chloride 107 Carbon Dioxide 31.1 H Anion Gap 4 L BUN < 5 L Creatinine 0.5 L Estim Creat Clear Calc 110.0 eGFR > 60 BUN/Creatinine Ratio 10 L Glucose 44 L* D Calculated Osmolality 277 Lactic Acid 2.0 Calcium 7.7 L Corrected Calcium 9.1 Phosphorus 2.2 L Magnesium 1.9 Total Bilirubin 0.2 L AST 32 ALT 10 Alkaline Phosphatase 61 Ammonia 16 Total Protein 4.1 L Albumin 2.2 L Globulin 1.9 L Albumin/Globulin Ratio 1.2 Impressions Impression: 1+ esophageal varices not large enough for band ligation Gastritis Internal hemorrhoids Diverticulosis sigmoid and descending colon Continue current management Assessment & Plan A&P Narrative contiue IV fluids echo recommended bradycardia noted monitor for now Time Spent With Patient Time: Total time spent is greater than 50% in coordination of care (as documented) at patient's floor/unit and/or counseling patient:
[2025-06-10] VITALS (7 sets, daily range): BP systolic 86–116; BP diastolic 42–65; PULSE 40–85; RESP 14–23; TEMP 36.1–36.8; O2SAT 92–99; BMI 19.6
[2025-06-10] MEDS: MIDODRINE 5 MG TABLET 10 MG PO ×2 (05:34→13:46)
[2025-06-10 05:49] LABS: Basophils # (Auto) 0.0 Thou/mm3 (0.0-0.2); Basophils % (Auto) 0 % (0-2.5); Eosinophils # (Auto) 0.2 Thou/mm3 (0.0-0.5); Eosinophils % (Auto) 3 % (0-10); Hematocrit 26.5 % (41.0-53.0); Immature Granulocytes Auto 0.02 Thou/mm3 (0.00-0.00); Lymphocytes # (Auto) 2.1 Thou/mm3 (1.0-4.8); Lymphocytes % (Auto) 28 % (10-50); Mean Corpuscular HGB Conc 32.8 g/dl (31.0-37.0); Mean Corpuscular Hemoglobin 31.5 pg (25.0-35.0); Mean Corpuscular Volume 96 fL (80-100); Monocytes # (Auto) 0.6 Thou/mm3 (0.0-0.8); Monocytes % (Auto) 8 % (0-12); Neutrophils # (Auto) 4.5 Thou/mm3 (1.8-7.7); Neutrophils % (Auto) 61 % (37-80); Nucleated Red Blood Cell # 0.00 Thou/mm3 (0.00-0.00); Nucleated Red Blood Cell % 0 /100 WBC (0); Platelet Count 265 Thou/mm3 (140-440); RDW Standard Deviation 52.2 fL (35.1-43.9); Red Blood Count 2.76 Miln/mm3 (4.50-5.90); White Blood Count 7.4 Thou/mm3 (3.8-10.6)
[2025-06-10 06:10] LABS: Hemoglobin 8.7 g/dL (13.5-16.0)
[2025-06-10 06:12] LABS: Alanine Aminotransferase 11 U/L (10-49); Albumin, Serum 3.2 gm/dL (3.4-4.8); Albumin/Globulin Ratio 2.0 (1.2-2.2); Alkaline Phosphatase 60 U/L (46-116); Anion Gap 5 (7-16); Aspartate Amino Transferase 28 U/L (0-34); BUN/Creatinine Ratio 10 Ratio (12-20); Bilirubin,Total 0.4 mg/dL (0.3-1.2); Blood Urea Nitrogen < 5 mg/dL (9-23); Calcium 8.7 mg/dL (8.3-10.6); Calcium (Corrected) 9.3 mg/dL (8.5-10.1); Carbon Dioxide 31.0 mMol/L (20.0-31.0); Chloride 107 mMol/L (98-107); Creatinine (Component) 0.5 mg/dL (0.6-1.3); Estimated Creatinine Clearance 110.0 mL/min (>60); Globulin 1.6 gm/dL (2.3-3.5); Glucose 118 mg/dL (74-106); Magnesium 1.8 mg/dL (1.6-2.6); Osmolality,Calculated 283 (275-295); Phosphorous 2.1 mg/dL (2.4-5.1); Potassium 4.3 mMol/L (3.4-5.1); Sodium 143 mMol/L (136-145); Total Protein 4.8 gm/dL (5.7-8.2); eGFR > 60 See Note
[2025-06-10] MEDS: INSULIN LISPRO (AdmeLOG) 1 UNIT/0.01 ML UNIT SC ×2 (07:57→11:49)
[2025-06-10] MEDS: ATORVASTATIN CALCIUM 20 MG TABLET 40 MG PO (08:16)
[2025-06-10] MEDS: MULTIVITAMINS TABLET 1 TAB PO (08:17)
[2025-06-10] MEDS: ASCORBIC ACID 250 MG TABLET 500 MG PO (08:17)
[2025-06-10] MEDS: NAPH,KPH MBDB 1 PACKET (1.5 GM) PO (08:17)
[2025-06-10] MEDS: cefTRIAXone/D5w 1gm IV premix 1 GM/50 ML BAG IV (08:18)
[2025-06-10] MEDS: ZINC SULFATE 220 MG CAPSULE PO (08:18)
[2025-06-10] MEDS: THIAMINE 100 MG TABLET PO (08:30)
[2025-06-10] MEDS: PANTOPRAZOLE 40 MG TABLET PO (08:33)
[2025-06-10] MEDS: Magnesium Sulfate 2 GM Ivpb 2 GM/50 ML BAG IV (09:02)
[2025-06-10] MEDS: RINGERS LACTATED 1000 ML 500 ML 999 ML IV (09:13)
--- NOTE | 2025-06-10 10:52 | PD.IMPROG ---
Documentation for date of: 06/10/25 Subjective Subjective Interval history: pt appears comfortable Hb 7.4 HR 48 Exam Vital Signs Temp Pulse Resp BP Pulse Ox O2 Del Method O2 Flow Rate 97.1 F 48 L 19 109/46 L 98 Room Air 3 06/10/25 08:00 06/10/25 08:00 06/10/25 08:00 06/10/25 08:00 06/10/25 08:00 06/10/25 08:00 06/08/25 19:55 Routine HEENT Exam Head: Present normocephalic and atraumatic Eye: Present EOMI and PERRL ENT: Present mucous membranes moist Routine Neck Exam Neck: Present supple and trachea midline Routine Respiratory Exam Respiratory: Present chest non-tender, lungs clear, normal breath sounds and no resp distress Routine Cardiovascular Exam Cardiovascular: Present RRR Routine Abdominal Exam Abdominal: Present soft and normoactive bowel sounds Routine Extremities Exam Extremities: Present full ROM Routine Skin Exam Skin: Present intact, dry and warm Routine Neurological Exam Neurological: Present alert, oriented X3 and CN II-XII intact Routine Psychiatric Exam Psychiatric: Present normal affect and normal thought process Objective Labs 06/10/25 04:23 06/10/25 04:23 Labs: Laboratory Results - last 24 hr 06/09/25 06/10/25 11:05 04:23 WBC 7.4 RBC 2.76 L Hgb 8.7 L Hct 26.5 L MCV 96 MCH 31.5 MCHC 32.8 RDW Std Deviation 52.2 H Plt Count 265 Neut % (Auto) 61 Lymph % (Auto) 28 [place] % (Auto) 8 Eos % (Auto) 3 Baso % (Auto) 0 Neut # (Auto) 4.5 Lymph # (Auto) 2.1 [place] # (Auto) 0.6 Eos # (Auto) 0.2 Baso # (Auto) 0.0 Immature Gran # (Auto) 0.02 H Absolute Nucleated RBC 0.00 Immature Gran % 0 Nucleated RBC % 0 Sodium 143 Potassium 4.3 Chloride 107 Carbon Dioxide 31.0 Anion Gap 5 L BUN < 5 L Creatinine 0.5 L Estim Creat Clear Calc 110.0 eGFR > 60 BUN/Creatinine Ratio 10 L Glucose 118 H D Calculated Osmolality 283 Lactic Acid 2.0 Calcium 8.7 Corrected Calcium 9.3 Phosphorus 2.1 L Magnesium 1.8 Total Bilirubin 0.4 AST 28 ALT 11 Alkaline Phosphatase 60 Ammonia 16 Total Protein 4.8 L Albumin 3.2 L D Globulin 1.6 L Albumin/Globulin Ratio 2.0 Assessment & Plan A&P Narrative continue midodrin Time Spent With Patient Time: Total time spent is greater than 50% in coordination of care (as documented) at patient's floor/unit and/or counseling patient:
--- NOTE | 2025-06-10 14:41 | ESDS_ITS ---
<Statement entered by Catherine Shoemaker MD - 06/13/25 12:15> I reviewed above note and agree with findings and plans. I have also personally examined the patient with medicine team and went over assessment and plan with medical team including web development intern and resident physician. <Statement entered by Marc Lay MD - 06/11/25 15:56> I saw and examined patient personally and supervised PGY 1 resident, Dr. Montoya with formulating a management plan. I agree with the documentation with the exceptions as listed below. Patient was initially admitted for GI bleeding for investigation. EGD and colonoscopy were done which revealed grade 1 esophageal varices and grade 2 hemorrhoids. He was treated with octreotide for esophageal varices and pantopra zole. Cardiology also was consulted for asymptomatic bradycardia who recommended patient continue on midodrine. Patient was discharged on Lasix, spironolactone and lactulose for hepatic encephalopathy prophylaxis. Patient strongly counseled and advised on complete alcohol abstinence. Also recommended to follow-up with GI and PCP in 1 week. Plan of care discussed with Attending Dr. Sahara Lay MD PGY 2 Disclaimer: This note was dictated by speech recognition. Minor errors in business process analyst may be present due to voice recognition software. Planned Discharge Date 06/10/25 DS: Providers Provider Date of admission: 06/06/25 03:40 Primary care physician: Giovanni Lutz PA-C Admitting Provider: Luci You MD Attending Provider on Admission: Catherine Shoemaker MD Consults: 06/06/25 01:21 Consult to Gastroenterology Stat Comment: GI BLEED, FOBT positive Consulting Provider: Robert Orellana 06/07/25 07:43 Referral Registered Dietitian Routine Comment: 06/09/25 10:09 Consult to Cardiology Routine Comment: Consulting Provider: Tari Shay Instructions: sinus bradycardia Attending Provider on DC: Catherine Shoemaker MD Discharging Provider: Catherine Shoemaker MD DS: Diagnosis Problem List Completed Was Problem List Reviewed/Reconciled?: Yes Hospital Course Hospital Course Hospital course: Mr. Schwab is a 65 y/o male with PMH of EtOH use disorder, HLD, T2DM who presented to the ED on 06/05 with multiple episodes of hematemis i/s/o EtOH and NSAID use. Admitted for upper GI bleed. ED course: Afebrile, HR 50s-70s, BP 100s / 50-60s. Labs significant for normocytic normochromic anemia hgb 6.9, HCT 20.1, BUN 44. Cr and eGFR WNL. Lipase WNL. AST 35. Troponin negative. UA 3+ glucose, +LE, WBC 38, 4+ bacteria. FOBT positive. HIV negative. EKG NSR HR 65, QTc 428. Liver US pending final read. Ucx pending. Given 1U pRBC, 2L NS, octreotide, pantropazole IV. Consulted GI In the hospital he was transfused 2 units of RBCs which stabilized his anemia. An incidental finding of a 6mm pulmonary nodule was discovered on CT recommending. 6 month follow-up CT chest without contrast. GI performed an EGD: G1 esophageal varices and erythematous gastric mucosa. he was started and completed on octreotide and given ceftriaxone for prophylaxis of varices seeding. Colonoscopy revealed internal hemorrhoids, moderate diverticulosis in the sigmoid colon and in the descending colon. He was stable yet bradycardic and hypotensive but responsive to fluids cardiology was consulted and cleared patient safe to discharge home. Discharge Instructions: -Midodrine 10 mg three times a day for low blood pressure. Hold if systolic blood pressure >120 -Pantoprazole 40 mg twice daily for the next month for varices -Please continue vitamins -Please follow up with Dr. Orellana within 2 weeks after discharge for possible repeat EGD in the future. -Please follow up with your primary care provider within one week of discharge -If your symptoms worsen,please seek immediate medical attention and return to your nearest emergency room -If you do not have a primary care provider, [facility] 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 Shoemaker, and supervising resident MD Salazar Jackson MD Internal Medicine PGY-1 Status at Discharge Functional status at discharge: independent ambulation Overall status at discharge: patient is back to baseline Time Spent with Patient Time attestation: Total time spent providing and/or coordinating discharge services: Time spent: Greater than 30 minutes Exam Vital Signs Temp Pulse Resp BP Pulse Ox O2 Del Method O2 Flow Rate 97.2 F 61 20 116/64 99 Room Air 3 06/10/25 12:00 06/10/25 13:46 06/10/25 12:00 06/10/25 13:46 06/10/25 12:00 06/10/25 12:00 06/08/25 19:55 Narrative Exam General: No acute distress, cachectic, able to respond to questions AOx2 (knows name, and location, unsure of date/year/who president is) Eye: PERRL, EOMI HENT: Normocephalic, atraumatic, normal hearing Neck: Supple, non-tender, no JVD, no lymphadenopathy Lungs: Clear to auscultation bilaterally, non-labored respirations, symmetric chest rise, no use of accessory muscles Heart: Normal S1 and S2, no S3 or S4 appreciated. Normal rate and regular rhythm, no murmurs, rubs gallops, or edema. Peripheral pulses intact bilaterally, capillary refill brisk distally Abdomen: Soft, non-tender, non-distended, normal bowel sounds. No guarding or rebound tenderness. Musculoskeletal: Normal range of motion and strength Skin: Skin is warm, dry, no rashes or lesions. Neurologic: No focal neurological deficits. Moving all extremities spontaneously Discharge Plan Plan Patient Disposition: HOME (Self Care) Patient condition on transfer: Stable Care Plan Goals: Instructions: -Midodrine 10 mg three times a day for low blood pressure. Hold if systolic blood pressure >120 -Pantoprazole 40 mg twice daily for the next month for varices -Please continue vitamins -Please follow up with Dr. Orellana within 2 weeks after discharge for possible repeat EGD in the future. -Please follow up with your primary care provider within one week of discharge -If your symptoms worsen,please seek immediate medical attention and return to your nearest emergency room -If you do not have a primary care provider, you may follow up at the [facility] at [address], [place] [address], Prescriptions/Referrals Prescriptions/Med Rec: New ascorbic acid (vitamin C) [Vitamin C] 250 mg Tablet 500 mg PO BID 7 Days Qty: 28 0RF thiamine HCl (vitamin B1) 100 mg tablet 100 mg PO QDAY Qty: 7 0RF midodrine 10 mg tablet 10 mg PO TID PRN (Reason: hypotension ) 30 Days Qty: 90 0RF Rx Instructions: Please give is systolic BP <90 pantoprazole 40 mg tablet,delayed release (DR/EC) 40 mg PO BID 30 Days Qty: 60 0RF Rx Instructions: short course of protonix twice daily, may stop within one month. Continued Synjardy 5-1,000 mg tablet 1 tab PO QDAY atorvastatin 40 mg tablet 40 mg PO QDAY Referrals: Robert Orellana MD [Physician, Gastroenterology] Giovanni Lutz PA-C [Primary Care Provider] Patient/Caregiver Discharge Instructions Education Materials: Bleeding Gastrointestinal, Esophageal Varices, Diagnosing Hemorrhoids Print Language: Indonesian Stand Alone Forms: Nia Award Info., Patient Portal Info Letter Discharge Order Discharge Orders: Discharge (Routine); Ordered 06/10/25 Ordered By: Sayra Darnell Quality Discharge Quality Measures VTE prophylaxis
--- NOTE | 2025-06-10 20:35 | PD.IMPROG ---
Documentation for date of: 06/10/25 Subjective Subjective Interval history: Late entry for the note hemoglobin hematocrit 8.7 and 26.5 Case discussed with internal medicine team Okay to discharge patient to be followed PCP no GI follow-up necessary Exam Vital Signs Temp Pulse Resp BP Pulse Ox O2 Del Method O2 Flow Rate 97.0 F 53 L 23 H 108/65 98 Room Air 3 06/10/25 16:00 06/10/25 16:00 06/10/25 16:00 06/10/25 16:00 06/10/25 16:00 06/10/25 16:00 06/08/25 19:55 Objective Labs 06/10/25 04:23 06/10/25 04:23 Labs: Laboratory Results - last 24 hr 06/10/25 04:23 WBC 7.4 RBC 2.76 L Hgb 8.7 L Hct 26.5 L MCV 96 MCH 31.5 MCHC 32.8 RDW Std Deviation 52.2 H Plt Count 265 Neut % (Auto) 61 Lymph % (Auto) 28 [place] % (Auto) 8 Eos % (Auto) 3 Baso % (Auto) 0 Neut # (Auto) 4.5 Lymph # (Auto) 2.1 [place] # (Auto) 0.6 Eos # (Auto) 0.2 Baso # (Auto) 0.0 Immature Gran # (Auto) 0.02 H Absolute Nucleated RBC 0.00 Immature Gran % 0 Nucleated RBC % 0 Sodium 143 Potassium 4.3 Chloride 107 Carbon Dioxide 31.0 Anion Gap 5 L BUN < 5 L Creatinine 0.5 L Estim Creat Clear Calc 110.0 eGFR > 60 BUN/Creatinine Ratio 10 L Glucose 118 H D Calculated Osmolality 283 Calcium 8.7 Corrected Calcium 9.3 Phosphorus 2.1 L Magnesium 1.8 Total Bilirubin 0.4 AST 28 ALT 11 Alkaline Phosphatase 60 Total Protein 4.8 L Albumin 3.2 L D Globulin 1.6 L Albumin/Globulin Ratio 2.0 Impressions Impression: Gastritis Internal hemorrhoids Diverticulosis left colon Reasonably stable hemoglobin hematocrit Okay to discharge patient Assessment & Plan A&P Narrative continue midodrin Time Spent With Patient Time: Total time spent is greater than 50% in coordination of care (as documented) at patient's floor/unit and/or counseling patient:
== END 2025-06-10 16:16 | disposition home or self-care (01) | DRG 432 ==
LOC: SERX 06-06 03:02 → SERHOLD 06-06 03:44 → S2NX 06-06 05:11
PROVIDERS: Specialist; Student in an Organized Health Care Education/Training Program; Admitting Provider Student in an Organized Health Care Education/Training Program; PCP Physician Assistant; Visit Provider Internal Medicine
PROC: (CPT 43239; principal; 2025-06-06 18:00)
PROC: 0DJD8ZZ Inspection of Lower Intestinal Tract, Via Natural or Artificial Opening Endoscopic (ICD-10-PCS; CPT 45378; principal; 2025-06-08 17:30)
DX: K70.30 Alcoholic cirrhosis of liver without ascites (principal); I85.11 Secondary esophageal varices with bleeding; K22.11 Ulcer of esophagus with bleeding; K29.71 Gastritis, unspecified, with bleeding; D62 Acute posthemorrhagic anemia; G93.40 Encephalopathy, unspecified; N39.0 Urinary tract infection, site not specified; Z68.1 Body mass index [BMI] 19.9 or less, adult; R64 Cachexia; E46 Unspecified protein-calorie malnutrition; E11.9 Type 2 diabetes mellitus without complications; E78.5 Hyperlipidemia, unspecified; F10.10 Alcohol abuse, uncomplicated; K59.00 Constipation, unspecified; I95.89 Other hypotension; K64.1 Second degree hemorrhoids; Z60.3 Acculturation difficulty; Z79.84 Long term (current) use of oral hypoglycemic drugs; F17.200 Nicotine dependence, unspecified, uncomplicated; E86.1 Hypovolemia; K57.30 Diverticulosis of large intestine without perforation or abscess without bleeding; R00.1 Bradycardia, unspecified
CPT/HCPCS: 36415; 36430; 71260; 74018; 74176; 76705; 80048; 80053; 80061; 80069; 80307; 80320; 81001; 82140; 82270; 83036; 83605; 83690; 83735; 84100; 84484; 85014; 85018; 85025; 85610; 85730; 86703; 86803; 86850; 86900; 86901; 86923; 87077; 87086; 87186; 93005; 93306; 96361; 96374; 96376; 99285; A4649; J0696; J1200; J1815; J2175; J2250; J2354; J2470; J3010; J3411; J3475; J7030; J7050; J7120; J7999; P9016; P9047; Q9967; A9270; G0480; P0947

== ENCOUNTER 2025-06-11 19:48 | Emergency (ER) | payer MEDICARE, MEDICAID, SELFPAY ==
[2025-06-11 19:50] VITALS: BMI 21.9
--- NOTE | 2025-06-11 20:13 | EKG_ITS ---
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
[2025-06-11 20:29] VITALS: BP 110/65; PULSE 67; RESP 18; TEMP 37.1; O2SAT 99
--- NOTE | 2025-06-11 20:46 | XR_ITS ---
Examination: CT brain head without contrast. 2-D sagittal coronal reconstructions Date and time of exam: June 11, 2025, 2112 hours INDICATIONS: Onset dizziness today CTDI: vol (mGy): 48 DLP: (mGycm): 1011 Technique: Multiple CT axial sections of the brain have been obtained, 5 mm slice thickness. Contrast has not been administered. 2-D sagittal, coronal reconstructions have been obtained Low dose protocols were performed. One or more of the following dose reduction techniques were used; automated exposure control, adjustment of the mA and/or KV according to patient size, use of iterative reconstruction technique. Findings: No significant ventricular enlargement. Intra-axial or extra-axial hemorrhage density is not seen. No mass effect or midline shift Basal cisterns are not remarkable. Fourth ventricle is midline. Cranial vault intact. Impression: Negative for acute hemorrhage, mass effect or midline shift
--- NOTE | 2025-06-11 20:46 | EDRME_ITS ---
Rapid Medical Screening Exam [facility] Arrival date/time: 06/11/25 19:48 65M with history of alcohol and meth use presents to ED with dizziness and ab fullness after discharge from upstairs yesterday. Chief Complaint: Dizziness Vital signs: Vital Signs Temperature 98.7 F 06/11/25 20:29 Pulse Rate 67 06/11/25 20:29 Respiratory Rate 18 06/11/25 20:29 Blood Pressure 110/65 06/11/25 20:29 Pulse Oximetry (%) 99 06/11/25 20:29 Oxygen Delivery Method Room Air 06/11/25 20:29
[2025-06-11 21:12] LABS: Basophils # (Auto) 0.0 Thou/mm3 (0.0-0.2); Basophils % (Auto) 0 % (0-2.5); Eosinophils # (Auto) 0.1 Thou/mm3 (0.0-0.5); Eosinophils % (Auto) 1 % (0-10); Hematocrit 24.8 % (41.0-53.0); Immature Granulocytes Auto 0.03 Thou/mm3 (0.00-0.00); Lymphocytes # (Auto) 1.9 Thou/mm3 (1.0-4.8); Lymphocytes % (Auto) 23 % (10-50); Mean Corpuscular HGB Conc 34.7 g/dl (31.0-37.0); Mean Corpuscular Hemoglobin 32.8 pg (25.0-35.0); Mean Corpuscular Volume 95 fL (80-100); Monocytes # (Auto) 0.6 Thou/mm3 (0.0-0.8); Monocytes % (Auto) 8 % (0-12); Neutrophils # (Auto) 5.4 Thou/mm3 (1.8-7.7); Neutrophils % (Auto) 67 % (37-80); Nucleated Red Blood Cell # 0.00 Thou/mm3 (0.00-0.00); Nucleated Red Blood Cell % 0 /100 WBC (0); Platelet Count 311 Thou/mm3 (140-440); RDW Standard Deviation 51.4 fL (35.1-43.9); Red Blood Count 2.62 Miln/mm3 (4.50-5.90); White Blood Count 8.0 Thou/mm3 (3.8-10.6)
[2025-06-11 21:18] LABS: Hemoglobin 8.6 g/dL (13.5-16.0)
[2025-06-11 21:25] LABS: INR 1.0 (0.9-1.3); Partial Thromboplastin Time 26.0 Seconds (22.0-36.0); Prothrombin Time 10.8 Seconds (9.0-12.2)
[2025-06-11 21:29] LABS: B-Type Natriuretic Peptide 332 pg/mL (0-100)
[2025-06-11 21:30] LABS: Ammonia < 10 uMol/L (11-32)
[2025-06-11 21:35] LABS: Collection Type, Urine Clean Catch; Squamous Epithelial Cell,Urine 0 /hpf (0-5)
[2025-06-11 21:38] LABS: Alanine Aminotransferase 16 U/L (10-49); Albumin, Serum 3.5 gm/dL (3.4-4.8); Albumin/Globulin Ratio 1.5 (1.2-2.2); Alcohol, Blood Medical < 3.0 mg/dL (0-10.0); Alkaline Phosphatase 99 U/L (46-116); Anion Gap 6 (7-16); Aspartate Amino Transferase 38 U/L (0-34); BUN/Creatinine Ratio 9 Ratio (12-20); Bilirubin,Total 0.4 mg/dL (0.3-1.2); Blood Urea Nitrogen 6 mg/dL (9-23); Calcium 8.8 mg/dL (8.3-10.6); Calcium (Corrected) 9.2 mg/dL (8.5-10.1); Carbon Dioxide 32.1 mMol/L (20.0-31.0); Chloride 101 mMol/L (98-107); Creatinine (Component) 0.7 mg/dL (0.6-1.3); Estimated Creatinine Clearance 79.9 mL/min (>60); Globulin 2.4 gm/dL (2.3-3.5); Glucose 116 mg/dL (74-106); Osmolality,Calculated 276 (275-295); Potassium 4.0 mMol/L (3.4-5.1); Sodium 139 mMol/L (136-145); Total Protein 5.9 gm/dL (5.7-8.2); Troponin I < 0.020 ng/mL (0.0-0.045); eGFR > 60 See Note
[2025-06-11 21:41] LABS: Bilirubin,Urine Negative (Negative); Blood,Urine Negative (Negative); Clarity,Urine Clear (Clear/Hazy); Color,Urine Colorless (Lt Yel-Yel); Culture Indicated,Urine Not Indicated; Glucose, Urine Negative (Negative); Ketones,Urine Negative (Negative); Leukocyte Esterase,Urine Negative (Negative); Nitrite,Urine Negative (Negative); PH,Urine 7.5 (5.0-7.0); Protein,Urine Negative (Neg - Trace); RBC,Urine < 1 /hpf (0-3); Specific Gravity,Urine 1.005 (1.001-1.035); Urobilinogen,Urine Negative mg/dL (0.0-1.0); WBC,Urine < 1 /hpf (0-5)
[2025-06-11 23:34] VITALS: BP 151/77; PULSE 62; RESP 18; TEMP 36.9; O2SAT 99
--- NOTE | 2025-06-11 23:43 | PD.EDDIZZY ---
ED Dizzyness RME/HPI General Chief Complaint: Dizziness Stated Complaint: SWELLING TO STOMACH, BLE, DIZZINESS, CONFUSION Arrival date/time: 06/11/25 19:48 RME / HPI RME / HPI Narrative: 06/11/25 19:48 65M with history of alcohol and meth use presents to ED with dizziness and ab fullness after discharge from upstairs yesterday. DR. GIBSON MAIN ED EVALUATION: Patient with Hx of cirrhosis and orthostatic hypotension recently admitted for upper GI bleed due to grade I varices discharged 24 hours [employer] now with reported abdominal distention and BLE edema also with mild lightheadedness. No chest pain or shortness of breath. No fever, vomiting, or diarrhea. PMH: HLD, Type 2 DM, Chronic Alcohol Use PSH: Recent upper endoscopy Allergies: None Social: Reports current abstinence form alcohol Related Data Home Medications ?Medication ?Instructions ?Recorded ?Confirmed atorvastatin 40 mg tablet 40 mg PO QDAY 06/06/25 06/06/25 empagliflozin 5 mg-metformin 1,000 1 tab PO QDAY 06/06/25 06/06/25 mg tablet (Synjardy) Previous Rx's ?Medication ?Instructions ?Recorded ascorbic acid (vitamin C) 250 mg 500 mg (2 x 250 mg) PO BID 7 days 06/09/25 tablet (Vitamin C) #28 tabs midodrine 10 mg tablet 10 mg PO TID PRN hypotension 1 06/09/25 month #90 tabs thiamine HCl (vitamin B1) 100 mg 100 mg PO QDAY #7 tabs 06/09/25 tablet pantoprazole 40 mg tablet,delayed 40 mg PO BID 1 month #60 tabs 06/10/25 release furosemide 20 mg tablet (Lasix) 20 mg PO Q OTHER DAY #30 tabs 06/11/25 lactulose 10 gram/15 mL oral 20 g (30 mL) PO BID #3,000 mL 06/11/25 solution spironolactone 25 mg tablet 25 mg PO QDAY #30 tabs 06/11/25 (Aldactone) Allergies Allergy/AdvReac Type Severity Reaction Status Date / Time No Known Allergies Allergy Verified 06/11/25 19:50 Review of Systems Review of Systems Systems Reviewed: All systems reviewed, normal except as documented Past Medical History Past Medical History NEUROLOGIC: Positive Migraine CARDIAC: Positive Hypertension GASTROINTESTINAL: Positive Gall Bladder Disease MUSCULOSKELETAL: Positive Arthritis ENDOCRINE: Positive Diabetes Mellitus Type 2 Family History FAMILY HISTORY: Positive Family Cancer Social History SMOKING STATUS: Current some day smoker ALCOHOL: Current ALCOHOL FREQUENCY: 3 or More Drinks per Day ED Exam Narrative Physical exam: GEN. APPEARANCE: The patient is alert awake oriented X-3 in no distress, lying down comfortably, does not look ill/toxic. Patient has good eye contact. Patient is cooperative. VITALS: All vitals were reviewed and the pulse ox is 99% on room air which is normal according to my interpretation. HEENT: Normocephalic, atraumatic. Pupils are equal and reactive. No niastagmus. Oral mucosa is moist. Patent Nares NECK: Supple, nontender, no thyromegaly, no meningismus, no JVD, no step offs CHEST: Symmetrical, atraumatic, and with equal expansion , Nontender on palpation no deformity and no crepitus. CARDIOVASCULAR: Heart regular rhythm no murmur or gallop rub or extra beats. LUNGS: Clear to auscultation bilaterally with symmetrical chest rise. No laboring tachypnea or wheezing. No intercostal subcostal retraction. No rales and no rhonchi. ABDOMEN: Soft, mild distention, , nontender to palpation, no guarding or rebound tenderness. There are no abnormal masses palpated. Active and normal bowel sounds. EXTREMITIES: Nontender. 1+ BLE edema extending from the ankles to the thighs. No cyanosis. Patient is able to move all 4 extremities well, with full ROM and good CSM. SKIN: Warm and dry, no jaundice or rashes noted. MUSCULOSKELETAL: No lubar or midline bony tenderness. There is no CVA tenderness. No paraspinal muscle spasm or tenderness. NEURO: Patient is [place] x 4, Cranial nerves II through XII grossly intact. There is no focal neurologic deficits noted. GCS is 15, PNS and [employer] appear grossly intact. Normal finger to nose, gait slightly wide-based. PSYCHIATRIC: Patient is in normal mood and affect, cooperative, no SI or HI or hallucinations. Course Quality Measures none Orders Category Date Time Status EKG (ED ONLY) *Do not use* NOW Care 06/11/25 20:[address] head/brain wo con Stat Exams 06/11/25 20:46 Completed EKG (ED Only) Stat Exams 06/11/25 20:13 Draft Alcohol, Blood Medical Stat Lab 06/11/25 21:00 Completed Ammonia Stat Lab 06/11/25 21:00 Completed BNP [B-Type Natriuretic Peptide] Stat Lab 06/11/25 21:00 Completed CBC Stat Lab 06/11/25 21:00 Completed CMP [Comprehensive Metabolic Panel] Stat Lab 06/11/25 21:00 Completed INR [Prothrombin Time with INR] Stat Lab 06/11/25 21:00 Completed PTT [Partial Thromboplastin Time] Stat Lab 06/11/25 21:00 Completed Troponin I Stat Lab 06/11/25 21:00 Completed Urinalysis, C/S if Indicated Stat Lab 06/11/25 21:10 Completed Vital Signs Vital signs: Vital Signs Temperature 98.7 F 06/11/25 20:29 Pulse Rate 67 06/11/25 20:29 Respiratory Rate 18 06/11/25 20:29 Blood Pressure 110/65 06/11/25 20:29 Pulse Oximetry (%) 99 06/11/25 20:29 Oxygen Delivery Method Room Air 06/11/25 20:29 Dizziness MDM Narrative MDM Narrative:: Scribe Attestation: IAdilene, am scribing for and in the presence of Dr. Gibson. Provider Notation: Although this document has been carefully reviewed, there may still be some phonetic and other typographical errors. These errors are purely grammatical due to imperfections in the software program and should not be construed in any way to compromise the substance of the patient's medical care during this visit. Patient with Hx of cirrhosis and orthostatic hypotension recently admitted for upper GI bleed due to grade I varices discharged 24 hours [employer] now with reported abdominal distention and BLE edema also with mild lightheadedness. No chest pain or shortness of breath. Please see PE findings. Laboratory markers including CBC demonstrate stable hemoglobin of 8.6, normal WBC of 8.0, and platelet count within normal limits. Serum chemistries demonstrates normal renal function, BNP mildly elevated at 332, Ammonia not detected, Troponin I also within normal limits. UA is unremarkable. Patient clinically appears stable. CT of the brain is negative. Review of medical records shows there was an intention to discharge patient home on Lactulose, Lasix, and Aldactone, but was not prusued. Will note prescriptions at this time and recommend F/U with PMD. Patient data External records reviewed:: [facility] previous records (Reviewed prior ED records from 06/06/25. Patient was seen for GI bleed.) Clinical information provided by:: patient Social determinants that could affect healthcare access:: alcohol use Patient has the following chronic illnesses:: HLD, Migraine, Hypertension, Gall Bladder Disease, Arthritis, Diabetes Mellitus Type 2 How is presenting disease/condition affected by chronic disease/condition?: exacerbated by Evaluation data The following diagnostics were reviewed and interpreted by me:: lab results, radiology exam(s) and EKG tracing(s) Lab and/or radiology exams considered but not ordered:: None Interpretation Summary: RADIOLOGY Head/Brain CT: Findings: No significant ventricular enlargement. Intra-axial or extra-axial hemorrhage density is not seen. No mass effect or midline shift Basal cisterns are not remarkable. Fourth ventricle is midline. Cranial vault intact. Impression: Negative for acute hemorrhage, mass effect or midline shift Medications / Prescriptions Medications or Prescriptions considered but not ordered:: None Medication administrations:: See above if any Consultations Consultation(s) initiated? (list below): No Diagnosis Most likely diagnosis given after review of the tests above:: Cirrhosis, Ascites due to alcoholic cirrhosis Admission Indicated Admission indicated?: not indicated Explain why admission is indicated or not indicated:: Patient does not meet admission criteria Admission Request Was there a request for admission?: No Disposition Plan Disposition Plan: Discharge Discharge Attestation Discharge Attestation: The patient and all family members were given an opportunity to ask questions and understood the discharge instructions. Discharge instructions specifically effects, indications for sooner follow up or return to the emergency department, and the expected course of current diagnosis. Patient condition: Stable Discharge Plan Plan Patient Disposition: HOME (Self Care) Discharge Disposition comment: Stable Prescriptions/Referrals Prescriptions/Med Rec: New furosemide [Lasix] 20 mg tablet 20 mg PO Q OTHER DAY Qty: 30 0RF spironolactone [Aldactone] 25 mg tablet 25 mg PO QDAY Qty: 30 2RF lactulose 10 gram/15 mL solution 20 g PO BID Qty: 3000 0RF No Action Synjardy 5-1,000 mg tablet 1 tab PO QDAY atorvastatin 40 mg tablet 40 mg PO QDAY ascorbic acid (vitamin C) [Vitamin C] 250 mg Tablet 500 mg PO BID 7 Days Qty: 28 0RF thiamine HCl (vitamin B1) 100 mg tablet 100 mg PO QDAY Qty: 7 0RF midodrine 10 mg tablet 10 mg PO TID PRN (Reason: hypotension ) 30 Days Qty: 90 0RF Rx Instructions: Please give is systolic BP <90 pantoprazole 40 mg tablet,delayed release (DR/EC) 40 mg PO BID 30 Days Qty: 60 0RF Rx Instructions: short course of protonix twice daily, may stop within one month. Referrals: Calvin Jean MD [Primary Care Provider, Family Practice] - In 1 week Problem List Clinical Impression: Cirrhosis, Ascites due to alcoholic cirrhosis Patient/Caregiver Discharge Instructions Diet Instructions: Low-salt diet, high-protein Education Materials: Treating Cirrhosis, ED Ascites Additional Instructions: Medications as directed. Follow-up with primary care doctor in 5 to 7 days. Return if worsening. Print Language: Emir[place] Stand Alone Forms: Nia Award Info., Patient Portal Info Letter
== END 2025-06-12 00:11 | disposition home or self-care (01) ==
PROVIDERS: Physician Assistant; Emergency Provider Emergency Medicine; PCP Family Medicine
DX: K70.31 Alcoholic cirrhosis of liver with ascites (principal)
CPT/HCPCS: 36415; 70450; 80053; 80320; 81001; 82140; 83880; 84484; 85025; 85610; 85730; 93005; 99284; G0480